=== PATIENT | female | born 1995 | race Caucasian/White ===

== ENCOUNTER 2019-01-22 16:55 | Emergency (ER) | payer OTHER ==
[2019-01-22 17:21] LABS: BILIRUBIN,URINE NEGATIVE (NEGATIVE); GLUCOSE, URINE (UA) NEGATIVE (NEGATIVE); KETONES,URINE (UA) NEGATIVE (NEGATIVE); LEUKOCYTE ESTERASE, URINE NEGATIVE (NEGATIVE); NITRITE,URINE NEGATIVE (NEGATIVE); OCCULT BLOOD,URINE NEGATIVE (NEGATIVE); PH,URINE 6.5 PH (5.0-7.5); PROTEIN,URINE NEGATIVE (NEGATIVE); UROBILINOGEN,URINE 0.2 (NORMAL) E.U./dL (NORMAL)
[2019-01-22 17:26] LABS: CLARITY,URINE CLEAR (CLEAR); HCG UR QUAL NEGATIVE
--- NOTE | 2019-01-22 17:29 | ED Physician Documentation ---
PD HPI ABD PAIN - Stated complaint Stated Complaint: LOW RT ABD PX/NAUSEA - Chief complaint Chief Complaint: Abd Pain - History obtained from History obtained from: Patient - History of Present Illness Timing - onset: Today (Woke at 4am with R abd pain, started more central and moved to the right. Assoc with nausea. No vomiting. BMs are normal.) Review of Systems Constitutional: denies: Fever, Chills Cardiac: reports: Reviewed and negative Respiratory: reports: Reviewed and negative PD PAST MEDICAL HISTORY - Past Medical History Past Medical History: No - Past Surgical History Past Surgical History: Yes HEENT: Tonsil/Adenoidectomy - Present Medications Home Medications: Ambulatory Orders Medication Instructions Recorded Confirmed No Known Home Medications 01/22/19 01/22/19 - Allergies Allergies/Adverse Reactions: Allergies Allergy/AdvReac Type Severity Reaction Status Date / Time No Known Drug Allergies Allergy Verified 01/22/19 17:09 - Social History Does the pt smoke?: No Smoking Status: Never smoker Does the pt drink ETOH?: Yes Does the pt have substance abuse?: No - Immunizations Immunizations are current?: Yes PD ED PE NORMAL - Vitals Vital signs reviewed: Yes - General General: Alert and oriented X 3, No acute distress - HEENT HEENT: PERRL, EOMI - Neck Neck: Supple, no meningeal sign, No bony TTP - Cardiac Cardiac: RRR, No murmur - Respiratory Respiratory: No respiratory distress, Clear bilaterally - Abdomen Abdomen: Normal bowel sounds, Soft, Other (Mild tenderness in the right mid abdomen, no surgical signs.) - Back Back: No CVA TTP, No spinal TTP - Derm Derm: Normal color, Warm and dry - Extremities Extremities: No edema, No calf tenderness / cord - Neuro Neuro: Alert and oriented X 3, Normal speech - Psych Psych: Normal mood, Normal affect Results - Vitals Vitals: Vital Signs - 24 hr 01/22/19 17:06 Temperature 36.2 C L Heart Rate 54 L Respiratory 18 Rate Blood Pressure 131/77 H O2 Saturation 98 Oxygen O2 Source Room air - Labs Labs: Laboratory Tests 01/22/19 01/22/19 01/22/19 17:07 17:24 17:24 WBC 11.4 H RBC 4.97 Hgb 13.8 Hct 42.8 MCV 86.0 MCH 27.7 MCHC 32.2 RDW 14.0 Plt Count 256 MPV 8.7 Neut # (Auto) 9.8 H Lymph # (Auto) 1.2 L [place] # (Auto) 0.3 Eos # (Auto) 0.0 Baso # (Auto) 0.0 Absolute Nucleated RBC 0.00 Nucleated RBC % 0.0 Sodium 137 Potassium 3.9 Chloride 103 Carbon Dioxide 26 Anion Gap 8.0 BUN 10 Creatinine 0.7 Estimated GFR (MDRD) 106 Glucose 113 H Calcium 9.2 Total Bilirubin 0.8 AST 26 ALT 27 Alkaline Phosphatase 71 Total Protein 7.5 Albumin 4.4 Globulin 3.1 Albumin/Globulin Ratio 1.4 Lipase 25 Urine Color YELLOW Urine Clarity CLEAR Urine pH 6.5 Ur Specific [place] 1.020 Urine Protein NEGATIVE Urine Glucose (UA) NEGATIVE Urine Ketones NEGATIVE Urine Occult Blood NEGATIVE Urine Nitrite NEGATIVE Urine Bilirubin NEGATIVE Urine Urobilinogen 0.2 (NORMAL) Ur Leukocyte Esterase NEGATIVE Ur Microscopic Review NOT INDICATED Urine Culture Comments NOT INDICATED Urine HCG, Qual NEGATIVE - Rads (name of study) CT A/P Radiology: EMP read contemporaneously (normal) PD MEDICAL DECISION MAKING - ED course ED course: This is a nonsexually active young woman with right lower quadrant pain, she has a borderline elevated white blood cell count and CT that was negative. Close watchful waiting was advised. Departure - Departure Disposition: 01 Home, Self Care Clinical Impression: Abdominal pain Qualifiers: Abdominal location: right lower quadrant Qualified Code(s): R10.31 - Right lower quadrant pain Condition: Good Record reviewed to determine appropriate education?: Yes Instructions: ED Abdominal Pain Unkn Cause Comments: As discussed if not better by lunchtime tomorrow please return for reevaluation, sooner if worse or if new symptoms develop. Your blood pressure was elevated today on check into the emergency department. This does not mean that you have hypertension, it is a common phenomenon to come to the emergency department and have elevated blood pressure. I recommend that you see your primary care physician within the week to have it rechecked when you are feeling better.
[2019-01-22 17:32] LABS: BASOPHILS % (AUTO) 0.4 %; HGB - HEMOGLOBIN 13.8 g/dL (12.0-16.0); LYMPHOCYTES # (AUTO) 1.2 10^3/uL (1.5-3.5); LYMPHOCYTES % (AUTO) 10.8 %; MEAN CORPUSCULAR HEMOGLOBIN 27.7 pg (27.0-31.0); MEAN CORPUSCULAR HGB CONC 32.2 g/dL (32.0-36.0); MEAN PLATELET VOLUME 8.7 fL (7.9-10.8); MONOCYTES # (AUTO) 0.3 10^3/uL (0.0-1.0); MONOCYTES % (AUTO) 2.8 %; NEUTROPHILS # (AUTO) 9.8 10^3/uL (1.5-6.6); PLT - PLATELET COUNT 256 10^3/uL (130-450); RED BLOOD COUNT 4.97 10^6/uL (4.20-5.40); WHITE BLOOD COUNT 11.4 x10^3/uL (4.8-10.8)
[2019-01-22 17:47] LABS: ALBUMIN 4.4 g/dL (3.2-5.5); ALBUMIN/GLOBULIN RATIO 1.4 (1.0-2.2); BILIRUBIN,TOTAL 0.8 mg/dL (0.2-1.0); CALCIUM 9.2 mg/dL (8.5-10.3); CREATININE 0.7 mg/dL (0.4-1.0); TOTAL PROTEIN 7.5 g/dL (6.7-8.2)
[2019-01-22] MEDS ORDERED: IOPAMIDOL-300 100 ML VIAL ONE (18:01)
[2019-01-22] MEDS ORDERED: IOPAMIDOL-300 100 ML VIAL IVP ONE (18:15)
--- NOTE | 2019-01-22 18:36 | CT Report ---
Reason: IV only, RLQ pain Procedure Date: 01/22/2019 Accession Number: [id number] / [id number] Procedure: CT - Abdomen/Pelvis W CPT Code: FULL RESULT: EXAM: CT ABDOMEN AND PELVIS EXAM DATE: 01/22/2019 06:12 PM. CLINICAL HISTORY: Right lower quadrant pain. COMPARISONS: None. TECHNIQUE: Routine helical CT imaging was performed through the abdomen and pelvis. IV contrast: ISOVUE 300 100mL. Enteric contrast: No. Reconstructions: Coronal and sagittal. In accordance with CT protocol optimization, one or more of the following dose reduction techniques were utilized for this exam: automated exposure control, adjustment of mA and/or KV based on patient size, or use of iterative reconstructive technique. FINDINGS: Lung Bases: Unremarkable. Liver: Normal. No masses. Gallbladder/Bile Ducts: Unremarkable. Spleen: Normal. Pancreas: Normal. Adrenal Glands: Normal. Kidneys: Normal. No masses or hydronephrosis. Peritoneal Cavity/Bowel: Normal. No free fluid, free air or adenopathy. No masses or acute inflammatory process. The appendix appears normal. Pelvic Organs: Normal. The bladder and visualized pelvic organs are within normal limits. Vasculature: No aneurysms or other significant abnormality. Bones: No significant abnormality. Other: None. IMPRESSION: Normal abdomen and pelvis CT. RADIA
[2019-01-22 19:23] VITALS: BP 137/75
== END 2019-01-22 19:22 | disposition home or self-care (01) ==
LOC: ED 16:55
DX: R10.31 Right lower quadrant pain (principal); R11.0 Nausea; D72.829 Elevated white blood cell count, unspecified; R03.0 Elevated blood-pressure reading, without diagnosis of hypertension
CPT/HCPCS: 36415; 74177; 80053; 81003; 81025; 83690; 85025; 99283; Q9967; 81001; 87086

== ENCOUNTER 2019-01-25 19:35 | Emergency (ER) | payer OTHER ==
[2019-01-25] MEDS ORDERED: LIDOCAINE VISCOUS 2% 15 ML UDC MM STA ×2 (22:07→22:25)
[2019-01-25] MEDS ORDERED: SODIUM CHLORIDE 0.9% 1,000 ML IV ONE (22:07)
[2019-01-25] MEDS ORDERED: MAG HYDROX/AL HYDROX/SIMETH 30 ML UDC PO STA ×2 (22:07→22:25)
--- NOTE | 2019-01-25 22:10 | ED Physician Documentation ---
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 She has continued to have pain and today the pain has become unbearable. She did take some ibuprofen earlier and this did not seem to help. She has not been able to hold fluids. Review of Systems Constitutional: denies: Fever, Chills, Myalgias Eyes: denies: Decreased vision Ears: denies: Ear pain Nose: denies: Rhinorrhea / runny nose, Congestion Throat: denies: Sore throat Cardiac: denies: Chest pain / pressure, Palpitations, Pedal edema, Calf pain Respiratory: denies: Dyspnea, Cough GI: reports: Abdominal Pain, Nausea, Vomiting : denies: Dysuria, Frequency Skin: denies: Rash Musculoskeletal: reports: Back pain. denies: Neck pain, Extremity pain Neurologic: denies: Generalized weakness, Focal weakness, Numbness PD PAST MEDICAL HISTORY - Past Medical History Past Medical History: No Cardiovascular: None Respiratory: None Neuro: None Endocrine/Autoimmune: None GI: None LAB AIDE: None : None HEENT: None Psych: None Musculoskeletal: None Derm: None - Past Surgical History Past Surgical History: Yes General: Other HEENT: Tonsil/Adenoidectomy - Present Medications Home Medications: Ambulatory Orders Medication Instructions Recorded Confirmed Sucralfate [Carafate] 1 gm PO ACHS #60 tablet 01/25/19 - Allergies Allergies/Adverse Reactions: Allergies Allergy/AdvReac Type Severity Reaction Status Date / Time No Known Drug Allergies Allergy Verified 01/25/19 19:43 - Social History Does the pt smoke?: No Smoking Status: Never smoker Does the pt drink ETOH?: Yes Does the pt have substance abuse?: No - Immunizations Immunizations are current?: Yes - POLST Patient has POLST: No PD ED PE NORMAL - Vitals Vital signs reviewed: Yes (hypertensive ) - General General: Alert and oriented X 3, No acute distress, Well developed/nourished - HEENT HEENT: Atraumatic, PERRL, EOMI, Other (dry mucous membranes ) - Neck Neck: Supple, no meningeal sign, No bony TTP - Cardiac Cardiac: RRR, No murmur - Respiratory Respiratory: No respiratory distress, Clear bilaterally, Other (There is some tenderness to the rhomboid muscles bilaterally. Breath sounds are diminished. ) - Abdomen Abdomen: Soft, Other (epigasatric tenderness without guarding. ) - Back Back: No CVA TTP, No spinal TTP - Derm Derm: Normal color, Warm and dry, No rash - Extremities Extremities: No deformity, No edema - Neuro Neuro: Alert and oriented X 3, boat patcher plastic 2-12 intact, No motor deficit, No sensory deficit, Normal speech Eye Opening: Spontaneous Motor: Obeys Commands Verbal: Oriented GCS Score: 15 - Psych Psych: Normal mood, Normal affect Results - Vitals Vitals: Vital Signs - 24 hr 01/25/19 01/25/19 01/25/19 19:40 21:42 21:59 Temperature 36.7 C Heart Rate 88 60 Respiratory 14 16 16 Rate Blood Pressure 146/95 H 118/88 H O2 Saturation 100 99 01/25/19 01/25/19 01/25/19 22:30 23:09 23:27 Temperature Heart Rate 59 L 59 L 54 L Respiratory 16 14 15 Rate Blood Pressure 127/91 H 107/75 107/75 O2 Saturation 100 100 97 01/25/19 23:45 Temperature Heart Rate 55 L Respiratory 16 Rate Blood Pressure O2 Saturation 99 Oxygen O2 Source Room air - EKG (time done) 194 Rate: Rate (enter#) (76) Rhythm: NSR Ischemia: Normal ST segments Compare to prior EKG: Old EKG unavailable Computer interpretation: Agree with computer - Labs Labs: Laboratory Tests 01/25/19 01/25/19 22:30 22:30 WBC 9.1 RBC 5.04 Hgb 14.6 Hct 42.7 MCV 84.8 MCH 29.0 MCHC 34.2 RDW 13.8 Plt Count 238 MPV 8.7 Neut # (Auto) 5.8 Lymph # (Auto) 2.5 [place] # (Auto) 0.7 Eos # (Auto) 0.0 Baso # (Auto) 0.1 Absolute Nucleated RBC 0.01 Nucleated RBC % 0.1 Sodium 134 L Potassium 3.9 Chloride 99 L Carbon Dioxide 25 Anion Gap 10.0 BUN 10 Creatinine 0.8 Estimated GFR (MDRD) 90 Glucose 101 H Calcium 8.8 Total Bilirubin 0.9 AST 21 ALT 18 Alkaline Phosphatase 79 Total Protein 7.5 Albumin 4.4 Globulin 3.1 Albumin/Globulin Ratio 1.4 Lipase 28 Procedures - IVC sono (time) 2206 Bedside IVC sono: IVC measures (cm) (0.94), Dehydration (est 1-2 liter deficit.) PD MEDICAL DECISION MAKING - ED course Complexity details: reviewed results, re-evaluated patient, considered differential, d/w patient ED course: 24-year-old female with epigastric abdominal pain after taking ibuprofen is administered a GI cocktail with improvement in her pain she has further improvement with the second cocktail including the Carafate. She is diagnosed with gastritis or duodenitis. Departure - Departure Disposition: 01 Home, Self Care Clinical Impression: Gastritis Qualifiers: Gastritis type: unspecified gastritis Chronicity: acute Gastritis bleeding: without bleeding Qualified Code(s): K29.00 - Acute gastritis without bleeding Condition: Stable Instructions: ED PUD Vs Gastritis Follow-Up: [facility] [Provider Group] Prescriptions: Sucralfate [Carafate] 1 gm PO ACHS #60 tablet Comments: Today it appears your abdominal pain is related to gastritis or an inflammation of the lining of the stomach. The lining of the stomach is especially sensitive to ibuprofen aspirin and Aleve. Avoid these medications as well as alcohol. Take some medication to reduce the acid in your stomach such as omeprazole or Pepcid AC. These are available [id number]. Take them on a regular basis for at least 2 weeks. In addition I have prescribed some Carafate which will coat your esophagus and stomach and aid in healing. The expectation is that your pain is improved dramatically over the next 24 hours and with treatment resolves. Discharge Date/Time: 01/25/19 23:55
[2019-01-25] MEDS ORDERED: SUCRALFATE 1 GM/10 ML UDC PO STA (22:25)
[2019-01-25] MEDS ORDERED: PANTOPRAZOLE 40 MG VIAL IVP STA (22:25)
[2019-01-25 22:41] LABS: BASOPHILS # (AUTO) 0.1 10^3/uL (0.0-0.1); BASOPHILS % (AUTO) 0.8 %; EOSINOPHILS % (AUTO) 0.5 %; HGB - HEMOGLOBIN 14.6 g/dL (12.0-16.0); LYMPHOCYTES # (AUTO) 2.5 10^3/uL (1.5-3.5); LYMPHOCYTES % (AUTO) 27.7 %; MEAN CORPUSCULAR HGB CONC 34.2 g/dL (32.0-36.0); MEAN CORPUSCULAR VOLUME 84.8 fL (81.0-99.0); MEAN PLATELET VOLUME 8.7 fL (7.9-10.8); MONOCYTES # (AUTO) 0.7 10^3/uL (0.0-1.0); MONOCYTES % (AUTO) 7.2 %; NEUTROPHILS # (AUTO) 5.8 10^3/uL (1.5-6.6); NEUTROPHILS % (AUTO) 63.8 %; PLT - PLATELET COUNT 238 10^3/uL (130-450); RED BLOOD COUNT 5.04 10^6/uL (4.20-5.40); RED CELL DISTRIBUTION WIDTH 13.8 % (12.0-15.0); WHITE BLOOD COUNT 9.1 x10^3/uL (4.8-10.8)
[2019-01-25 22:52] LABS: ALBUMIN 4.4 g/dL (3.2-5.5); ALBUMIN/GLOBULIN RATIO 1.4 (1.0-2.2); BILIRUBIN,TOTAL 0.9 mg/dL (0.2-1.0); CALCIUM 8.8 mg/dL (8.5-10.3); CREATININE 0.8 mg/dL (0.4-1.0); TOTAL PROTEIN 7.5 g/dL (6.7-8.2)
[2019-01-25 23:10] VITALS: BP 107/75
== END 2019-01-25 23:55 | disposition home or self-care (01) ==
LOC: ED 19:35
DX: K29.00 Acute gastritis without bleeding (principal); E86.0 Dehydration
CPT/HCPCS: 36415; 80053; 83690; 85025; 93005; 96361; 96374; 99283; 99284; A9270

== ENCOUNTER 2019-04-03 23:52 | Emergency (ER) | payer OTHER ==
[2019-04-03 23:59] VITALS: BP 123/70
--- NOTE | 2019-04-04 00:08 | ED Physician Documentation ---
PD HPI LOWER EXT INJURY - Stated complaint Stated Complaint: L ANKLE PX - Chief complaint Chief Complaint: Trauma Ext - History obtained from History obtained from: Patient - History of Present Illness PD HPI LOW EXT INJURY LOCATION: Left, Ankle Type of injury: Twist Where injury occurred: Street (yesterday while runnign) Timing - onset: How many days ago (1) Timing - duration: Days (1) Timing - details: Gradual onset Pain level max: 8 Pain level now: 6 Improved by: Rest, Ice, Immobilization Worsened by: Moving, Palpating Associated symptoms: Swelling, Discolored (bruising). 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 : None HEENT: None Psych: None Musculoskeletal: None Derm: None - Past Surgical History Past Surgical History: Yes General: Other HEENT: Tonsil/Adenoidectomy - Allergies Allergies/Adverse Reactions: Allergies Allergy/AdvReac Type Severity Reaction Status Date / Time No Known Drug Allergies Allergy Verified 04/04/19 00:01 - Social History Does the pt smoke?: No Smoking Status: Never smoker Does the pt drink ETOH?: Yes Does the pt have substance abuse?: No - Immunizations Immunizations are current?: Yes - POLST Patient has POLST: No PD ED PE NORMAL - Vitals Vital signs reviewed: Yes - General General: Alert and oriented X 3, No acute distress - HEENT HEENT: Moist mucous membranes - Neck Neck: Supple, no meningeal sign - Derm Derm: Warm and dry - Extremities Extremities: Other (Tender to palpation over the lateral malleolus of the left ankle. Mild swelling. Small ecchymosis. Otherwise normal examination of the foot and ankle. Neurovascularly intact) - Neuro Neuro: Alert and oriented X 3 Results - Vitals Vitals: Vital Signs - 24 hr 04/03/19 23:55 Temperature 36.6 C Heart Rate 73 Respiratory 18 Rate Blood Pressure 123/70 O2 Saturation 100 Oxygen O2 Source Room air - Rads (name of study) Left ankle x-ray Radiology: Prelim report reviewed, EMP read contemporaneously, See rad report (Normal ankle x-ray) PD MEDICAL DECISION MAKING - ED course Complexity details: reviewed results, re-evaluated patient, considered differential, d/w patient ED course: 24-year-old female with a left ankle sprain. No acute findings on x-ray. Placed in a Aircast for comfort. Declines crutches. Declines pain medication here or for home. Patient counseled regarding signs and symptoms for which I believe and urgent re-evaluation would be necessary. Patient with good understanding of and agreement to plan and is comfortable going home at this time This document was made in part using voice recognition software. While efforts are made to proofread this document, sound alike and grammatical errors may occur. Departure - Departure Disposition: Home, Self Care Clinical Impression: Left ankle sprain Qualifiers: Encounter type: initial encounter Involved ligament of ankle: unspecified ligament Qualified Code(s): S93.402A - Sprain of unspecified ligament of left ankle, initial encounter Condition: Good Instructions: ED Sprain Ankle Follow-Up: your,doctor in 1 week [Other] Comments: Wear the splint as needed for comfort. Follow-up with your doctor in 1 week for repeat evaluation. Forms: Activity restrictions
--- NOTE | 2019-04-04 00:53 | XRAY Report ---
Reason: L ankle pain s/p inversion Procedure Date: 04/04/2019 Accession Number: [id number] / [id number] Procedure: XR - Ankle 3 View LT CPT Code: FULL RESULT: EXAM: LEFT ANKLE RADIOGRAPHY EXAM DATE: 04/04/2019 12:30 AM. CLINICAL HISTORY: L ankle pain s/p inversion. COMPARISON: None. TECHNIQUE: 3 views. FINDINGS: Bones: Normal. No fractures or bone lesions. Joints: Normal. No effusion. No subluxations. The ankle mortise is normally aligned. Soft Tissues: Normal. No soft tissue swelling. IMPRESSION: Normal ankle radiography. RAD[facility]
== END 2019-04-04 01:05 | disposition home or self-care (01) ==
LOC: ED 23:52
DX: S93.402A Sprain of unspecified ligament of left ankle, initial encounter (principal); X50.1XXA Overexertion from prolonged static or awkward postures, initial encounter; Y93.02 Activity, running; Y92.410 Unspecified street and highway as the place of occurrence of the external cause
CPT/HCPCS: 99283

== ENCOUNTER 2019-07-04 09:19 | Emergency (ER) | payer OTHER ==
[2019-07-04 09:25] VITALS: BP 139/87
--- NOTE | 2019-07-04 09:40 | ED Physician Documentation ---
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 She complains of pain in her right thumb, having smashed in a car door 4 days ago. Additionally she complains of low back pain that has been ongoing for the past week, starting after packing heavy gear at work. It is worse with activity. She denies fever, urinary incontinence, numbness or weakness. She denies history of similar symptoms in the past. She is right- hand dominant. 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 : None HEENT: None Psych: None Musculoskeletal: None Derm: None - Past Surgical History Past Surgical History: Yes General: Other HEENT: Tonsil/Adenoidectomy - Allergies Allergies/Adverse Reactions: Allergies Allergy/AdvReac Type Severity Reaction Status Date / Time No Known Drug Allergies Allergy Verified 07/04/19 09:28 - Social History Does the pt smoke?: No Smoking Status: Never smoker Does the pt drink ETOH?: Yes Does the pt have substance abuse?: No - Immunizations Immunizations are current?: Yes - POLST Patient has POLST: No PD ED PE NORMAL - Vitals Vital signs reviewed: Yes (Borderline hypertension.) - General General: Alert and oriented X 3, Well developed/nourished - HEENT HEENT: Atraumatic - Cardiac Cardiac: RRR - Respiratory Respiratory: No respiratory distress, Clear bilaterally - Abdomen Abdomen: Soft, Non tender - Back Back: No CVA TTP, No spinal TTP - Derm Derm: No rash - Extremities Extremities: Other (There is faint ecchymosis at the base of the right thumb at the radial aspect of the MCP joint. There is no break in the integument. There is associated tenderness to palpation. Distal neurovascular is intact.) - Neuro Neuro: Alert and oriented X 3, No motor deficit, No sensory deficit Results - Vitals Vitals: Vital Signs - 24 hr 07/04/19 09:21 Temperature 36.3 C L Heart Rate 90 Respiratory 19 Rate Blood Pressure 139/87 H O2 Saturation 98 Oxygen O2 Source Room air - Rads (name of study) Right thumb Radiology: Prelim report reviewed, EMP read contemporaneously, See rad report (Normal digit radiography.) PD MEDICAL DECISION MAKING - ED course Complexity details: reviewed old records, reviewed results, re-evaluated patient, considered differential, d/w patient ED course: The patient's presentation is most consistent with contusion to the right thumb. There is no evidence of fracture or dislocation on radiographic imaging. Her lower back pain is most consistent with muscle strain. I doubt epidural abscess, spinal stenosis, or cauda equina syndrome. I discussed with her symptomatic treatment, outpatient follow-up, as well as potentially worrisome signs or symptoms that should prompt reevaluation in the emergency department. Departure - Departure Disposition: 01 Home, Self Care Clinical Impression: Contusion of right thumb Qualifiers: Encounter type: initial encounter Damage to nail status: without damage Qualifi ed Code(s): S60.011A - Contusion of right thumb without damage to nail, initial encounter Lumbar strain Qualifiers: Encounter type: initial encounter Qualified Code(s): S39.012A - Strain of muscle, fascia and tendon of lower back, initial encounter Condition: Stable Instructions: ED Contusion Hand, ED Sprain Strain Lumbar Follow-Up: Don Kaye ARNP [Primary Care Provider] - Comments: You can continue using ibuprofen, up to 800 mg 3 times daily for anti- inflammatory effect. Let pain be your guide to activity level. Follow-up with your primary physician within 2 weeks. Call to schedule an appointment. Return to the emergency department if you develop increasing pain, or otherwise worsening symptoms.
--- NOTE | 2019-07-04 10:11 | XRAY Report ---
Reason: Right thumb injury Procedure Date: 07/04/2019 Accession Number: [id number] / [id number] Procedure: XR - Finger(s) RT CPT Code: FULL RESULT: EXAM: RIGHT FIRST DIGIT RADIOGRAPHY EXAM DATE: 07/04/2019 09:51 AM. CLINICAL HISTORY: Right thumb injury. COMPARISON: None. TECHNIQUE: 3 views. FINDINGS: Bones: Normal. No fracture or bone lesion. Joints: Normal. No subluxations. Soft Tissues: Normal. No soft tissue swelling. IMPRESSION: Normal digit radiography. RADIA
[2019-07-04] MEDS ORDERED: fentaNYL 100 MCG/2 ML VIAL IVP STA (10:27)
[2019-07-04] MEDS ORDERED: FAMOTIDINE 20 MG/2 ML VIAL IVP STA (10:27)
[2019-07-04] MEDS ORDERED: SODIUM CHLORIDE 0.9% 1,000 ML IV ONE (10:27)
[2019-07-04] MEDS ORDERED: ONDANSETRON 4 MG/2 ML VIAL IVP STA (10:28)
== END 2019-07-04 10:29 | disposition home or self-care (01) ==
LOC: ED 09:19
DX: S60.011A Contusion of right thumb without damage to nail, initial encounter (principal); W23.0XXA Caught, crushed, jammed, or pinched between moving objects, initial encounter; S39.012A Strain of muscle, fascia and tendon of lower back, initial encounter; X50.0XXA Overexertion from strenuous movement or load, initial encounter; Y93.89 Activity, other specified; Y99.1 Military activity
CPT/HCPCS: 73140; 80053; 83690; 85025; 99283; 99284

== ENCOUNTER 2019-07-22 16:41 | Emergency (ER) | payer OTHER ==
--- NOTE | 2019-07-22 18:38 | XRAY Report ---
Reason: cough Procedure Date: 07/22/2019 Accession Number: [id number] / [id number] Procedure: XR - Chest 2 View X-Ray CPT Code: 15969 FULL RESULT: EXAM: CHEST RADIOGRAPHY EXAM DATE: 07/22/2019 05:53 PM. CLINICAL HISTORY: Cough. COMPARISON: None. TECHNIQUE: 2 views. FINDINGS: Lungs/Pleura: No dense consolidation. No large effusion or pneumothorax. No pulmonary edema. Mediastinum: Heart and mediastinal contours are unremarkable. Other: None. IMPRESSION: No acute radiographic pulmonary abnormalities. RAD[facility]
[2019-07-22] MEDS ORDERED: DEXAMETHASONE 10 MG/ML VIAL PO STA (18:48)
[2019-07-22] MEDS ORDERED: IPRATROPIUM/ALBUTEROL 3 ML NEB INH STA (18:48)
[2019-07-22] MEDS ORDERED: CHERRY SYRUP 10 ML UDC PO ONE (18:48)
[2019-07-22] MEDS ORDERED: BENZONATATE 100 MG CAPSULE PO STA (18:48)
--- NOTE | 2019-07-22 18:55 | ED Physician Documentation ---
History of Present Illness - Stated complaint Stated Complaint: COUGH/DIARRHEA/SOA - Chief complaint Chief Complaint: General - History obtained from History obtained from: Patient - History of Present Illness Timing: How many days ago (4-5) Pain level max: 3 Pain level now: 3 Improved by: rest Worsened by: deep breath - Additonal information Additional information: 24-year-old female presents to the emergency department with cough congestion for the past 4 to 5 days, increasing trouble breathing. Used inhalers when she was younger. Occasional subjective fevers. Had diarrhea x3 today. No vomiting. Denies any possibility of . 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 : None HEENT: None Psych: None Musculoskeletal: None Derm: None - Past Surgical History Past Surgical History: Yes General: Other HEENT: Tonsil/Adenoidectomy - Present Medications Home Medications: Ambulatory Orders Medication Instructions Recorded Confirmed Albuterol Sulfate [Proair Hfa 1 - 2 puffs INH Q4H PRN #1 inhaler 07/22/19 Inhaler] Benzonatate [Tessalon Perle] 100 - 200 mg PO TID PRN #30 capsule 07/22/19 - Allergies Allergies/Adverse Reactions: Allergies Allergy/AdvReac Type Severity Reaction Status Date / Time No Known Drug Allergies Allergy Verified 07/22/19 17:12 - Social History Does the pt smoke?: No Smoking Status: Never smoker Does the pt drink ETOH?: Yes Does the pt have substance abuse?: No - Immunizations Immunizations are current?: Yes - POLST Patient has POLST: No PD ED PE NORMAL - Vitals Vital signs reviewed: Yes - General General: Alert and oriented X 3, No acute distress, Well developed/nourished - HEENT HEENT: Ears normal, Moist mucous membranes, Pharynx benign - Neck Neck: Supple, no meningeal sign, No adenopathy - Cardiac Cardiac: RRR, Strong equal pulses - Respiratory Respiratory: No respiratory distress, Other (Mild diminished breath sounds bilaterally) - Abdomen Abdomen: Soft, Non tender, Non distended - Back Back: No CVA TTP, No spinal TTP - Derm Derm: Warm and dry, No rash - Extremities Extremities: No edema - Neuro Neuro: Alert and oriented X 3 - Psych Psych: Normal mood, Normal affect Results - Vitals Vitals: Oxygen O2 Source Room air - Rads (name of study) cxr Radiology: Prelim report reviewed, EMP read contemporaneously, See rad report (No acute disease) PD MEDICAL DECISION MAKING - ED course Complexity details: reviewed results, re-evaluated patient, considered differential, d/w patient ED course: 24-year-old female with what appears to be a viral syndrome. She is well- appearing, nontoxic. Afebrile. Feels better after albuterol treatment. Will prescribe an inhaler for home. We will have her follow-up with her doctor for further care. Patient counseled regarding signs and symptoms for which I believe and urgent re-evaluation would be necessary. Patient with good understanding of and agreement to plan and is comfortable going home at this time This document was made in part using voice recognition software. While efforts are made to proofread this document, sound alike and grammatical errors may occur. Departure - Departure Disposition: 01 Home, Self Care Clinical Impression: Viral syndrome Condition: Good Instructions: ED Viral Syndrome Follow-Up: Don Kaye ARNP [Primary Care Provider] - Within 1 week (if not better ) Prescriptions: Albuterol Sulfate [Proair Hfa Inhaler] 1 - 2 puffs INH Q4H PRN #1 inhaler PRN Reason: Shortness Of Air/Wheezing Benzonatate [Tessalon Perle] 100 - 200 mg PO TID PRN #30 capsule PRN Reason: Cough Comments: Return if you worsen. Follow-up with your doctor for further care. Your x-ray does not show any pneumonia today. Drink plenty of fluids and rest. Discharge Date/Time: 07/22/19 19:56
[2019-07-22 19:42] VITALS: BP 94/54
== END 2019-07-22 19:56 | disposition home or self-care (01) ==
LOC: ED 16:41
DX: B34.9 Viral infection, unspecified (principal)
CPT/HCPCS: 71046; 94640; 99283; A9270

== ENCOUNTER 2019-08-20 14:50 | Emergency (ER) | payer OTHER ==
[2019-08-20] MEDS ORDERED: BENZONATATE 100 MG CAPSULE PO STA (15:29)
[2019-08-20] MEDS ORDERED: guaiFENesin/CODEINE 5 ML UDC PO STA (15:29)
[2019-08-20] MEDS ORDERED: ALBUTEROL NEB 2.5 MG/3 ML INH STA (15:29)
[2019-08-20] MEDS ORDERED: DEXAMETHASONE 10 MG/ML VIAL PO STA (15:29)
[2019-08-20] MEDS ORDERED: CHERRY SYRUP 10 ML UDC PO ONE (15:29)
--- NOTE | 2019-08-20 15:54 | ED Physician Documentation ---
PD HPI URI - Stated complaint Stated Complaint: SOA, CP - Chief complaint Chief Complaint: Resp - History obtained from History obtained from: Patient - History of Present Illness Timing - onset: How many months ago (1) Timing duration: Months (1) Timing details: Still present, Waxing and waning (has had coughing and dyspnea for a month. Seen in ER with Rx for Tessalon and Albuterol MDI, with some improvement, but not all better, and has had increased coughing and dyspnea again this past week. No fevers, no sputum. Has repetitive dry cough.) Associated symptoms: Dry cough, Dyspnea. No: Fever, Chills, Sore throat, Swollen nodes, NVD Contributing factors: No: Sick contact, COPD / asthma Worsened by: Activity Recently seen: Emergency Dept (a month ago) Review of Systems Constitutional: denies: Fever, Chills, Myalgias Nose: denies: Rhinorrhea / runny nose, Congestion, Sinus pressure / pain Throat: denies: Sore throat Cardiac: denies: Chest pain / pressure, Palpitations Respiratory: reports: Dyspnea, Cough. 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 : None HEENT: None Psych: None Musculoskeletal: None Derm: None - Past Surgical History Past Surgical History: Yes General: Other HEENT: Tonsil/Adenoidectomy - Present Medications Home Medications: Ambulatory Orders Medication Instructions Recorded Confirmed Albuterol Sulfate [Proair Hfa 1 - 2 puffs INH Q4H PRN #1 inhaler 07/22/19 Inhaler] Benzonatate [Tessalon Perle] 100 - 200 mg PO TID PRN #30 capsule 07/22/19 Albuterol Sulf [Ventolin Hfa 1 - 2 puffs INH Q4HR PRN #1 inhaler 08/20/19 Inhaler] Benzonatate [Tessalon Perle] 100 mg PO TID PRN #25 capsule 08/20/19 Doxycycline Hyclate 100 mg PO BID #14 capsule 08/20/19 dexAMETHasone [Decadron] 4 mg PO DAILY #10 tablet 08/20/19 guaiFENesin/CODEINE [Robitussin AC] 10 ml PO Q6H PRN #240 ml 08/20/19 - Allergies Allergies/Adverse Reactions: Allergies Allergy/AdvReac Type Severity Reaction Status Date / Time No Known Drug Allergies Allergy Verified 07/22/19 17:12 - Social History Does the pt smoke?: No Smoking Status: Never smoker Does the pt drink ETOH?: Yes Does the pt have substance abuse?: No - Immunizations Immunizations are current?: Yes - POLST Patient has POLST: No PD ED PE NORMAL - Vitals Vital signs reviewed: Yes - General General: Alert and oriented X 3, No acute distress, Well developed/nourished - HEENT HEENT: Ears normal, Pharynx benign - Neck Neck: Supple, no meningeal sign, No adenopathy - Cardiac Cardiac: RRR, No murmur - Respiratory Respiratory: No respiratory distress, Other (repetitive dry cough, without wheezing, but prolonged expiratory phase. ) - Abdomen Abdomen: Soft, Non tender - Derm Derm: Normal color, Warm and dry - Extremities Extremities: No tenderness to palpate, No edema, No calf tenderness / cord - Neuro Neuro: Alert and oriented X 3, No motor deficit, Normal speech Results - Vitals Vitals: Vital Signs - 24 hr 08/20/19 08/20/19 08/20/19 15:06 15:55 16:20 Temperature 36.6 C 36.7 C Heart Rate 63 84 80 Respiratory 20 16 16 Rate Blood Pressure 128/71 127/66 O2 Saturation 98 98 Oxygen O2 Source Room air - Rads (name of study) chest xray Radiology: Prelim report reviewed (no infiltrates), See rad report PD MEDICAL DECISION MAKING - ED course Complexity details: reviewed results, considered differential (consider atypical bronchitis. ), d/w patient Departure - Departure Disposition: 01 Home, Self Care Clinical Impression: Persistent cough for 3 weeks or longer, Bronchitis Condition: Stable Record reviewed to determine appropriate education?: Yes Instructions: ED Bronchitis Asthmatic Follow-Up: Don Kaye ARNP [Primary Care Provider] - Prescriptions: Albuterol Sulf [Ventolin Hfa Inhaler] 1 - 2 puffs INH Q4HR PRN #1 inhaler PRN Reason: Shortness Of Air/Wheezing Benzonatate [Tessalon Perle] 100 mg PO TID PRN #25 capsule PRN Reason: Cough dexAMETHasone [Decadron] 4 mg PO DAILY #10 tablet Doxycycline Hyclate 100 mg PO BID #14 capsule guaiFENesin/CODEINE [Robitussin AC] 10 ml PO Q6H PRN #240 ml PRN Reason: Cough Comments: Your chest x-ray is still clear. The lungs do not show any signs of pneumonia or fluid. Presume this is a persisting bronchial inflammation. This can be just inflammatory or environmental or could be an atypical infection. Continue the inhaler 2 puffs 4 times a day to see if it helps. Tessalon if needed for cough suppression. These have been the previous prescriptions as well. To it add Robitussin with codeine if needed for cough suppression 2. I think a big difference will be adding a steroid for reduction of inflammation of the bronchials. Take Decadron daily as directed. There may be a mild infection persisting to cause this so we can try doxycycline antibiotic as well for a week. See if the combination of it all helps improve your symptoms. Follow-up with your primary care if not better over the next week. Forms: Activity restrictions Discharge Date/Time: 08/20/19 16:21
--- NOTE | 2019-08-20 16:14 | XRAY Report ---
Reason: dyspnea/ cough for a month Procedure Date: 08/20/2019 Accession Number: [id number] / [id number] Procedure: XR - Chest 2 View X-Ray CPT Code: 91586 FULL RESULT: EXAM: CHEST RADIOGRAPHY EXAM DATE: 08/20/2019 03:49 PM. CLINICAL HISTORY: Dyspnea/ cough for a month. COMPARISON: CHEST 2 VIEW 07/22/2019 5:52 PM. TECHNIQUE: 2 views. FINDINGS: Heart size is normal. The lungs are hypoexpanded. Mild patchy bibasilar opacities likely representing atelectasis. Otherwise no focal consolidation. No pleural effusion or pneumothorax. IMPRESSION: Low lung volumes and mild patchy bibasilar atelectasis. Otherwise no acute cardiopulmonary findings. RADIA
[2019-08-20 16:21] VITALS: BP 127/66
== END 2019-08-20 16:21 | disposition home or self-care (01) ==
LOC: ED 14:50
DX: J40 Bronchitis, not specified as acute or chronic (principal)
CPT/HCPCS: 71046; 94640; 99284; A9270

== ENCOUNTER 2019-11-03 11:21 | Emergency (ER) | payer OTHER ==
[2019-11-03 11:28] VITALS: BP 123/86
[2019-11-03 11:40] LABS: BILIRUBIN,URINE NEGATIVE (NEGATIVE); CLARITY,URINE CLEAR (CLEAR); GLUCOSE, URINE (UA) NEGATIVE (NEGATIVE); KETONES,URINE (UA) NEGATIVE (NEGATIVE); LEUKOCYTE ESTERASE, URINE TRACE (NEGATIVE); NITRITE,URINE NEGATIVE (NEGATIVE); OCCULT BLOOD,URINE NEGATIVE (NEGATIVE); PROTEIN,URINE NEGATIVE (NEGATIVE); UROBILINOGEN,URINE 0.2 (NORMAL) E.U./dL (NORMAL)
[2019-11-03 11:41] LABS: HCG UR QUAL NEGATIVE
[2019-11-03 11:47] LABS: BACTERIA,URINE Rare /HPF (None Seen); RBC,URINE None Seen /HPF (0-5); SQUAMOUS EPITHELIAL CELL,UR RARE Squamous (<= Few)
--- NOTE | 2019-11-03 12:25 | ED Physician Documentation ---
PD HPI NVD - Stated complaint Stated Complaint: NAUSEA/BACK PX - Chief complaint Chief Complaint: Abd Pain - History obtained from History obtained from: Patient - History of Present Illness Timing - onset: Other (She is about a week late on her menses, has had some nausea with one episode of vomiting, some low back pain and aches and pains generally. No cramping or bleeding. No urinary complaints. She had a test at home and actually took a couple, one was negative and one was maybe slightly positive.) Review of Systems Constitutional: reports: Myalgias. 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 : None HEENT: None Psych: None Musculoskeletal: None Derm: None - Past Surgical History Past Surgical History: Yes General: Other HEENT: Tonsil/Adenoidectomy - Present Medications Home Medications: Ambulatory Orders Medication Instructions Recorded Confirmed Albuterol Sulfate [Proair Hfa 1 - 2 puffs INH Q4H PRN #1 inhaler 07/22/19 Inhaler] Benzonatate [Tessalon Perle] 100 - 200 mg PO TID PRN #30 capsule 07/22/19 Albuterol Sulf [Ventolin Hfa 1 - 2 puffs INH Q4HR PRN #1 inhaler 08/20/19 Inhaler] Benzonatate [Tessalon Perle] 100 mg PO TID PRN #25 capsule 08/20/19 Doxycycline Hyclate 100 mg PO BID #14 capsule 08/20/19 dexAMETHasone [Decadron] 4 mg PO DAILY #10 tablet 08/20/19 guaiFENesin/CODEINE [Robitussin AC] 10 ml PO Q6H PRN #240 ml 08/20/19 - Allergies Allergies/Adverse Reactions: Allergies Allergy/AdvReac Type Severity Reaction Status Date / Time No Known Drug Allergies Allergy Verified 11/03/19 11:24 - Social History Does the pt smoke?: No Smoking Status: Never smoker Does the pt drink ETOH?: Yes Does the pt have substance abuse?: No - Immunizations Immunizations are current?: Yes - POLST Patient has POLST: No PD ED PE NORMAL - Vitals Vital signs reviewed: Yes - General General: Alert and oriented X 3, No acute distress - Cardiac Cardiac: RRR, No murmur - Respiratory Respiratory: No respiratory distress, Clear bilaterally - Abdomen Abdomen: Normal bowel sounds, Soft, Non tender - Back Back: No CVA TTP, No spinal TTP - Derm Derm: Normal color, Warm and dry - Extremities Extremities: No edema, No calf tenderness / cord - Neuro Neuro: Alert and oriented X 3, Normal speech - Psych Psych: Normal mood, Normal affect Results - Vitals Vitals: Vital Signs - 24 hr 11/03/19 11:24 Temperature 36.6 C Heart Rate 90 Respiratory 14 Rate Blood Pressure 123/86 H O2 Saturation 100 Oxygen O2 Source Room air - Labs Labs: Laboratory Tests 11/03/19 11:33 Urine Color YELLOW Urine Clarity CLEAR Urine pH 7.0 Ur Specific [place] <=1.005 Urine Protein NEGATIVE Urine Glucose (UA) NEGATIVE Urine Ketones NEGATIVE Urine Occult Blood NEGATIVE Urine Nitrite NEGATIVE Urine Bilirubin NEGATIVE Urine Urobilinogen 0.2 (NORMAL) Ur Leukocyte Esterase TRACE H Urine RBC None Seen Urine WBC 0-3 Ur Squamous Epith Cells RARE Squamous Urine Bacteria Rare Ur Microscopic Review INDICATED Urine Culture Comments INDICATED Urine HCG, Qual NEGATIVE PD MEDICAL DECISION MAKING - ED course ED course: Some of her symptoms could be due to early , advised she wait a few days to a week and try another home test. She has small leukocyte esterase in her urine, but no urinary complaints so suspect this is false positive. She declined medication for nausea or the aches. Departure - Departure Disposition: 01 Home, Self Care Clinical Impression: Late menses Vomiting Qualifiers: Vomiting type: unspecified Vomiting Intractability: non-intractable Nausea presence: with nausea Qualified Code(s): R11.2 - Nausea with vomiting, unspecified Condition: Good Record reviewed to determine appropriate education?: Yes Instructions: ED Nausea Vomiting Comments: Take another test in about a week. Return for new or worsening symptoms.
== END 2019-11-03 12:29 | disposition home or self-care (01) ==
LOC: ED 11:21
DX: N91.2 Amenorrhea, unspecified (principal); R11.2 Nausea with vomiting, unspecified; Z32.02 Encounter for pregnancy test, result negative
CPT/HCPCS: 81001; 81003; 81025; 87086; 99282; 99283

== ENCOUNTER 2019-11-28 04:01 | Emergency (ER) | payer OTHER ==
--- NOTE | 2019-11-28 04:09 | ED Physician Documentation ---
PD HPI FEVER - Stated complaint Stated Complaint: FEVER/NAUSEA/7WKS PREG - History obtained from History obtained from: Patient - History of Present Illness Timing - onset: How many days ago (3) Timing duration: Days Timing details: Gradual onset Pain level now: 4 Associated symptoms: Chills, Sweats, Nasal congestion, Dry cough. No: Ear pain, Sinus pain, Dyspnea, Abdominal pain Recently seen: Not recently seen - Additional information Additional information: patient is 7.5 weeks (primagravida). presents c/o fever Tmax 103, chills, sweats, nausea but no vomiting. Symptoms x 2-3 days Review of Systems Constitutional: reports: Fever, Chills, Myalgias, Sweats Respiratory: reports: Cough. denies: Dyspnea GI: reports: Nausea. 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 : None HEENT: None Psych: None Musculoskeletal: None Derm: None - Past Surgical History Past Surgical History: Yes General: Other HEENT: Tonsil/Adenoidectomy - Present Medications Home Medications: Ambulatory Orders Medication Instructions Recorded Confirmed Oseltamivir [Tamiflu] 75 mg PO BID #9 capsule 11/28/19 Pnv No.95/Ferrous Fum/Folic AC 1 tab PO DAILY 11/28/19 11/28/19 [ Vitamins Tablet] - Allergies Allergies/Adverse Reactions: Allergies Allergy/AdvReac Type Severity Reaction Status Date / Time No Known Drug Allergies Allergy Verified 11/28/19 04:10 - Social History Does the pt smoke?: No Smoking Status: Never smoker Does the pt drink ETOH?: Yes Does the pt have substance abuse?: No - Immunizations Immunizations are current?: Yes - POLST Patient has POLST: No PD ED PE NORMAL - Vitals Vital signs reviewed: Yes - General General: Alert and oriented X 3, No acute distress, Well developed/nourished - HEENT HEENT: Moist mucous membranes, Pharynx benign - Neck Neck: Supple, no meningeal sign - Cardiac Cardiac: RRR, No murmur - Respiratory Respiratory: No respiratory distress, Clear bilaterally - Back Back: No CVA TTP - Derm Derm: Normal color, Warm and dry Results - Vitals Vitals: Vital Signs - 24 hr 11/28/19 04:08 Temperature 36.3 C L Heart Rate 100 Respiratory 16 Rate Blood Pressure 116/80 O2 Saturation 98 Oxygen O2 Source Room air - Labs Labs: Laboratory Tests 11/28/19 04:26 Influenza A (Rapid) Negative Influenza B (Rapid) Negative PD MEDICAL DECISION MAKING - ED course Complexity details: reviewed results, considered differential, d/w patient ED course: patient is well appearing despite high fevers. She is 7.5 weeks . H+P s/o influenza. Will test for influenza, but I also recommend treatment even if result is negative because of the strong suspicion of influenza and the strong recommendation for anti-influenza medication in patients with influenza (including suspected influenza despite negative result). Patient is agreeable with this plan. Departure - Departure Disposition: 01 Home, Self Care Clinical Impression: Viral syndrome Condition: Good Instructions: ED Flu, ED Viral Syndrome Follow-Up: [facility] [Provider Group] Prescriptions: Oseltamivir [Tamiflu] 75 mg PO BID #9 capsule Discharge Date/Time: 11/28/19 04:31
[2019-11-28 04:10] VITALS: BP 116/80
[2019-11-28] MEDS ORDERED: OSELTAMIVIR 75 MG CAPSULE PO STA (04:19)
== END 2019-11-28 04:31 | disposition home or self-care (01) ==
LOC: ED 04:01
DX: O98.511 Other viral diseases complicating pregnancy, first trimester (principal); B34.9 Viral infection, unspecified; Z3A.01 Less than 8 weeks gestation of pregnancy
CPT/HCPCS: 87275; 87276; 99283; 99284; A9270

== ENCOUNTER 2020-01-08 19:34 | Emergency (ER) | payer OTHER ==
[2020-01-08 20:01] LABS: BASOPHILS % (AUTO) 0.4 %; EOSINOPHILS # (AUTO) 0.1 10^3/uL (0.0-0.7); EOSINOPHILS % (AUTO) 1.1 %; HGB - HEMOGLOBIN 12.5 g/dL (12.0-16.0); LYMPHOCYTES # (AUTO) 2.2 10^3/uL (1.5-3.5); LYMPHOCYTES % (AUTO) 27.6 %; MEAN CORPUSCULAR HEMOGLOBIN 28.9 pg (27.0-31.0); MEAN CORPUSCULAR HGB CONC 33.2 g/dL (32.0-36.0); MEAN PLATELET VOLUME 10.3 fL (7.9-10.8); MONOCYTES # (AUTO) 0.6 10^3/uL (0.0-1.0); NEUTROPHILS % (AUTO) 63.5 %; PLT - PLATELET COUNT 229 10^3/uL (130-450); RED BLOOD COUNT 4.32 10^6/uL (4.20-5.40); RED CELL DISTRIBUTION WIDTH 13.4 % (12.0-15.0); WHITE BLOOD COUNT 7.9 x10^3/uL (4.8-10.8)
--- NOTE | 2020-01-08 20:10 | ED Physician Documentation ---
History of Present Illness - Stated complaint Stated Complaint: BURNING/THROBBING LOWER BACK/SIDES - Chief complaint Chief Complaint: Back Pain - History obtained from History obtained from: Patient, Family - History of Present Illness Timing: Today, How many days ago (several days) Pain level max: 5 Pain level now: 4 - Additonal information Additional information: 24-year-old female 1 para 0 approximately 13 weeks EGA. She states she has had lower back pain for the past few days. Worse with movement and better with rest. No vaginal bleeding. No vaginal discharge. Has not been taking anything for the pain. States had a ultrasound 2 weeks ago that was normal. She sees Dr. Noe at the [facility] for her OB care. No numbness or tingling. No trauma. No urinary symptoms. 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 : None HEENT: None Psych: None Musculoskeletal: None Derm: None - Past Surgical History Past Surgical History: Yes General: Other HEENT: Tonsil/Adenoidectomy - Present Medications Home Medications: Ambulatory Orders Medication Instructions Recorded Confirmed Oseltamivir [Tamiflu] 75 mg PO BID #9 capsule 11/28/19 Pnv No.95/Ferrous Fum/Folic AC 1 tab PO DAILY 11/28/19 11/28/19 [ Vitamins Tablet] Cephalexin [Keflex] 500 mg PO Q6H #20 capsule 01/08/20 - Allergies Allergies/Adverse Reactions: Allergies Allergy/AdvReac Type Severity Reaction Status Date / Time No Known Drug Allergies Allergy Verified 01/08/20 19:36 - Social History Does the pt smoke?: No Smoking Status: Never smoker Does the pt drink ETOH?: Yes Does the pt have substance abuse?: No - Immunizations Immunizations are current?: Yes - POLST Patient has POLST: No PD ED PE NORMAL - Vitals Vital signs reviewed: Yes - General General: Alert and oriented X 3, No acute distress - HEENT HEENT: Moist mucous membranes - Neck Neck: Supple, no meningeal sign - Cardiac Cardiac: RRR - Respiratory Respiratory: No respiratory distress, Clear bilaterally - Abdomen Abdomen: Soft, Non tender, Non distended - Back Back: No CVA TTP, No spinal TTP - Derm Derm: Warm and dry - Extremities Extremities: No edema, No calf tenderness / cord, Other (Normal bilateral lower extremity patellar and ankle jerk reflexes. Normal great toe extension bilaterally. no saddle anesthesia) - Neuro Neuro: Alert and oriented X 3, No motor deficit, No sensory deficit Results - Vitals Vitals: Vital Signs - 24 hr 01/08/20 01/08/20 19:36 20:39 Temperature 36.5 C 36.7 C Heart Rate 99 75 Respiratory 14 18 Rate Blood Pressure 133/85 H 120/86 H O2 Saturation 98 99 Oxygen O2 Source Room air - Labs Labs: Laboratory Tests 01/08/20 01/08/20 01/08/20 19:50 19:56 19:56 WBC 7.9 RBC 4.32 Hgb 12.5 Hct 37.6 MCV 87.0 MCH 28.9 MCHC 33.2 RDW 13.4 Plt Count 229 MPV 10.3 Neut # (Auto) 5.0 Lymph # (Auto) 2.2 Tillman # (Auto) 0.6 Eos # (Auto) 0.1 Baso # (Auto) 0.0 Absolute Nucleated RBC 0.00 Nucleated RBC % 0.0 Sodium 136 Potassium 3.6 Chloride 104 Carbon Dioxide 23 Anion Gap 9.0 BUN 13 Creatinine 0.7 Estimated GFR (MDRD) 105 Glucose 88 Calcium 9.5 Total Bilirubin 0.3 AST 23 ALT 22 Alkaline Phosphatase 50 Total Protein 7.3 Albumin 3.9 Globulin 3.4 Albumin/Globulin Ratio 1.1 Lipase 30 Urine Color YELLOW Urine Clarity CLEAR Urine pH 6.0 Ur Specific [place] 1.025 Urine Protein NEGATIVE Urine Glucose (UA) NEGATIVE Urine Ketones NEGATIVE Urine Occult Blood TRACE-LYSE Urine Nitrite NEGATIVE Urine Bilirubin NEGATIVE Urine Urobilinogen 0.2 (NORMAL) Ur Leukocyte Esterase SMALL H Urine RBC 0-5 Urine WBC 11-25 H Ur Squamous Epith Cells MANY Squamous H Urine Crystals 0-2 Calcium Oxalate Urine Bacteria Rare Ur Microscopic Review INDICATED Urine Culture Comments NOT INDICATED PD MEDICAL DECISION MAKING - ED course Complexity details: reviewed results, re-evaluated patient, considered differential (No cauda equina, no spinal epidural abscess, no fracture, no aortic dissection or evidence of aneursym rupture), d/w patient ED course: Bedside ultrasound reveals a intrauterine biparietal diameter measures 13 weeks and 2 days. heart rate is 154 bpm. Good movement. Patient with a UTI. Will place on Keflex for this. She is well-appearing, nontoxic. No evidence of pyelonephritis. Patient counseled regarding signs and symptoms for which I believe and urgent re-evaluation would be necessary. Patient with good understanding of and agreement to plan and is comfortable going home at this time This document was made in part using voice recognition software. While efforts are made to proofread this document, sound alike and grammatical errors may occur. Departure - Departure Disposition: Home, Self Care Clinical Impression: UTI (urinary tract infection) Qualifiers: Urinary tract infection type: acute cystitis Hematuria presence: without hematuria Qualified Code(s): N30.00 - Acute cystitis without hematuria Qualifiers: Weeks of gestation: 13 weeks Qualified Code(s): Z3A.13 - 13 weeks gestation of Condition: Good Instructions: ED UTI Cystitis Female Follow-Up: Don Kaye ARNP [Primary Care Provider] - Within 1 week Prescriptions: Cephalexin [Keflex] 500 mg PO Q6H #20 capsule Comments: Take all antibiotics until gone. Return if you worsen. Follow-up with your doctor for further care. You can use Tylenol at home for pain. Discharge Date/Time: 01/08/20 20:54
[2020-01-08 20:13] LABS: ALBUMIN 3.9 g/dL (3.2-5.5); ALBUMIN/GLOBULIN RATIO 1.1 (1.0-2.2); BILIRUBIN,TOTAL 0.3 mg/dL (0.2-1.0); CALCIUM 9.5 mg/dL (8.5-10.3); CREATININE 0.7 mg/dL (0.4-1.0); TOTAL PROTEIN 7.3 g/dL (6.7-8.2)
[2020-01-08 20:13] LABS: BILIRUBIN,URINE NEGATIVE (NEGATIVE); GLUCOSE, URINE (UA) NEGATIVE (NEGATIVE); KETONES,URINE (UA) NEGATIVE (NEGATIVE); LEUKOCYTE ESTERASE, URINE SMALL (NEGATIVE); NITRITE,URINE NEGATIVE (NEGATIVE); OCCULT BLOOD,URINE TRACE-LYSE (NEGATIVE); PROTEIN,URINE NEGATIVE (NEGATIVE); UROBILINOGEN,URINE 0.2 (NORMAL) E.U./dL (NORMAL)
[2020-01-08 20:14] LABS: CLARITY,URINE CLEAR (CLEAR)
[2020-01-08 20:27] LABS: BACTERIA,URINE Rare /HPF (None Seen); CRYSTALS,URINE 0-2 Calcium Oxalate /LPF; RBC,URINE 0-5 /HPF (0-5); SQUAMOUS EPITHELIAL CELL,UR MANY Squamous (<= Few)
[2020-01-08] MEDS ORDERED: cephALEXin 250 MG CAPSULE PO STA (20:31)
[2020-01-08 20:40] VITALS: BP 120/86
== END 2020-01-08 20:54 | disposition home or self-care (01) ==
LOC: ED 19:34
DX: O23.11 Infections of bladder in pregnancy, first trimester (principal); Z3A.13 13 weeks gestation of pregnancy
CPT/HCPCS: 36415; 80053; 81001; 83690; 85025; 99283; 99284; A9270; 81003; 87086

== ENCOUNTER 2020-05-09 20:43 | Outpatient (CLI) | payer OTHER ==
[2020-05-09 21:27] VITALS: BP 122/77
--- NOTE | 2020-05-09 21:59 | PROVIDER PROGRESS NOTE ---
- HPI Chief Complaint: Other (25 yo at 31+0 wga here for labor check. Followed by [facility]. Uncomplicated . No significant PMH or prior surgeries. 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 Last IC more than a week ago. Having lower abdominal pain and back pain. No CTX/VB/LOF. Afebrile.) Current : Current EDU 07/11/20 Gestation 31 Weeks and 0 Days 1 Para 0 Vital Signs Temperature 98.4 F 05/09/20 21:05 Heart Rate 102 H 05/09/20 21:05 Respiratory Rate 20 05/09/20 21:05 Blood Pressure 136/81 H 05/09/20 21:05 O2 Saturation 99 05/09/20 21:05 Temperature 98.4 F 05/09/20 21:05 Heart Rate 102 H 05/09/20 21:05 Respiratory Rate 05/09/20 21:05 Blood Pressure 122/77 05/09/20 21:20 O2 Saturation 99 05/09/20 21:05 - Exam GEN: NAD RESP: nl effort CV; RRR ABD: gravid, S&NT/ND. Mild TTP in suprapubic area. BACK: No CVA tenderness EXT:WWP PSYCH: Bright and reactive affect NEURO: A&O - Procedures NST Procedure: EFM 145 mod cali 15x15 accels no decels s/p VAS (non-reactive prior to VAS) TOCO: quiet SSE: Cervical visually closed and long. No fluid or blood in vaginal vault SVE: closed/long/high/mid Procedure Details: Cat I/AGA tracing No ctx on toco Reassuring SVE FFN,, UA, GCCT, vagitinitis panel pending - Plan Plan: Patient had no change in SVE over observation period Cat I tracing DC's home with precautions
[2020-05-09 22:01] LABS: BILIRUBIN,URINE NEGATIVE (NEGATIVE); GLUCOSE, URINE (UA) NEGATIVE (NEGATIVE); KETONES,URINE (UA) NEGATIVE (NEGATIVE); LEUKOCYTE ESTERASE, URINE TRACE (NEGATIVE); NITRITE,URINE NEGATIVE (NEGATIVE); OCCULT BLOOD,URINE NEGATIVE (NEGATIVE); PROTEIN,URINE NEGATIVE (NEGATIVE); UROBILINOGEN,URINE 0.2 (NORMAL) E.U./dL (NORMAL)
[2020-05-09 22:22] LABS: BACTERIA,URINE Few /HPF (None Seen); CLARITY,URINE CLEAR (CLEAR); RBC,URINE None Seen /HPF (0-5); SQUAMOUS EPITHELIAL CELL,UR MANY Squamous (<= Few)
[2020-05-10 01:20] LABS: TRICHOMONAS VAGINALIS DNA NEGATIVE (NEGATIVE)
[2020-05-10 03:48] LABS: CANDIDA GROUP DNA UNRESOLVED (NEGATIVE); CANDIDA KRUSEI DNA UNRESOLVED (NEGATIVE); TRICHOMONAS VAGINALIS DNA UNRESOLVED (NEGATIVE)
== END 2020-05-09 23:05 | disposition home or self-care (01) ==
LOC: WFO 20:43 → FBP 20:47 → WFO 23:05
PROVIDERS: ATTEND Obstetrics & Gynecology
DX: O99.89 Other specified diseases and conditions complicating pregnancy, childbirth and the puerperium (principal); Z3A.31 31 weeks gestation of pregnancy; R10.2 Pelvic and perineal pain; M54.9 Dorsalgia, unspecified
CPT/HCPCS: 81001; 82731; 87491; 87591; 87661; 87801; 99214

== ENCOUNTER 2020-05-11 14:40 | Outpatient (CLI) | payer OTHER ==
[2020-05-11 15:36] LABS: BILIRUBIN,URINE NEGATIVE (NEGATIVE); GLUCOSE, URINE (UA) NEGATIVE (NEGATIVE); KETONES,URINE (UA) NEGATIVE (NEGATIVE); LEUKOCYTE ESTERASE, URINE MODERATE (NEGATIVE); NITRITE,URINE NEGATIVE (NEGATIVE); OCCULT BLOOD,URINE NEGATIVE (NEGATIVE); PROTEIN,URINE NEGATIVE (NEGATIVE); UROBILINOGEN,URINE 0.2 (NORMAL) E.U./dL (NORMAL)
[2020-05-11 15:45] LABS: BACTERIA,URINE Few /HPF (None Seen); CLARITY,URINE CLEAR (CLEAR); RBC,URINE None Seen /HPF (0-5); SQUAMOUS EPITHELIAL CELL,UR MANY Squamous (<= Few)
[2020-05-11 15:54] LABS: RUPTURE OF MEMBRANES PLUS NEGATIVE (NEGATIVE)
[2020-05-11 17:19] LABS: BASOPHILS % (AUTO) 0.3 %; EOSINOPHILS # (AUTO) 0.1 10^3/uL (0.0-0.7); EOSINOPHILS % (AUTO) 0.8 %; HGB - HEMOGLOBIN 11.4 g/dL (12.0-16.0); LYMPHOCYTES # (AUTO) 1.7 10^3/uL (1.5-3.5); LYMPHOCYTES % (AUTO) 16.1 %; MEAN CORPUSCULAR HEMOGLOBIN 27.6 pg (27.0-31.0); MEAN CORPUSCULAR HGB CONC 31.9 g/dL (32.0-36.0); MEAN CORPUSCULAR VOLUME 86.4 fL (81.0-99.0); MEAN PLATELET VOLUME 10.8 fL (7.9-10.8); MONOCYTES # (AUTO) 0.5 10^3/uL (0.0-1.0); MONOCYTES % (AUTO) 4.9 %; NEUTROPHILS # (AUTO) 7.9 10^3/uL (1.5-6.6); PLT - PLATELET COUNT 234 10^3/uL (130-450); RED BLOOD COUNT 4.13 10^6/uL (4.20-5.40); RED CELL DISTRIBUTION WIDTH 15.3 % (12.0-15.0); WHITE BLOOD COUNT 10.3 x10^3/uL (4.8-10.8)
--- NOTE | 2020-05-11 17:22 | PREOP HISTORY & PHYSICAL ---
DATE OF SERVICE: 05/11/2020 Physician: Gerardo Moseley MD IDENTIFICATION: The patient is a 25-year-old G2, P1 female whose EDC is 07/11, this is based on an LMP of 12/18/2019. CHIEF COMPLAINT: Fluid loss. HISTORY OF PRESENT ILLNESS: Patient states she developed fluid loss yesterday, starting about 10-11 o'clock in the morning. She noted it was clear. She was home, she was not doing any exercise or any excessive activity. She denies any other symptoms at this time. She was seen back on the for similar complaints, at which time she had a negative rupture of membrane but had a positive FFN. Patient's OB course has been significant in that there was a 6- day discrepancy from her LMP with her 9-week ultrasound. Her 20-week ultrasound showed a discrepancy in growth, also, which made the appeared to be growing at a 3rd percentile. However, when you take into account her 9-week ultrasound, this was only a 35% discrepancy. The remainder of her course has been unremarkable. PAST MEDICAL HISTORY: Patient denies any medical issues. PAST SURGICAL HISTORY: Tonsils, adenoidectomy, as well as mole removal. ALLERGIES: NONE KNOWN. CURRENT MEDICATIONS: vitamins. HABITS: Patient denies use of alcohol, tobacco, or street or addictive drugs or marijuana. SOCIAL HISTORY: Patient is active duty [employer] [place], to fellow active duty [place] person. 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 FAMILY HISTORY: Positive for type 2 diabetes in her grandmother. REVIEW OF SYSTEMS: Positive for glasses. PHYSICAL EXAMINATION GENERAL: Well-developed, well-nourished, white female in no acute distress at this time. VITAL SIGNS: Within normal limits. HEENT: Pupils are equal, round. Extraocular muscles are intact. Thyroid is not palpably enlarged. HEART: Regular rate and rhythm without murmurs. LUNGS: Lung rodriguez are clear without rales or wheezes. ABDOMEN: Gravid, 31 cm fundal height. The uterus is nontender. PELVIC: Exam shows cervix, which is closed. It is about 2.5 to 3 cm in length. Her FFN was negative today as well as her ROM plus. Her urine shows moderate leukocytes; however, there is greater than 25 WBCs per high power but many squamous epithelial cells. FFN is negative as well as ROM plus. We have also done a group B strep, which is pending at this time. Because she has not had a 50 gram Glucola done at this point, we have obtained a CBC, antibody screen, and performed her 50 gram Glucola, which is currently pending. IMPRESSION: A 25-year-old G1, P0 female who is currently 29 weeks and 2 days by a 9-week ultrasound. The 20-week ultrasound concurs with this. Her last menstrual period is 6 day different. At this point, she does not appear to be ruptured. She does not appear to be laboring. We have obtained labs looking for evidence of any bacterial vaginosis. We have also done a 50 gram Glucola, as well as antibody screen and a CBC. These are pending. Ultrasound will be performed to check cervical length. cc requested for Dr. Noe at [facility] cc: Hasmukh TD: 05/11/2020 16:55 MTDD
--- NOTE | 2020-05-11 18:36 | Ultrasound Report ---
PROCEDURE: OB Transvaginal INDICATIONS: cervical length, contractions, back ache TECHNIQUE: Limited transvaginal ultrasound was performed to check cervix. COMPARISON: Outside OB ultrasound not available. FINDINGS: The cervix is closed measuring 3.9 cm. IMPRESSION: Cervix is closed measuring 3.9 cm. Reviewed by: Oscar Lucas MD on 05/11/2020 6:35 PM PDT Approved by: Oscar Lucas MD on 05/11/2020 6:35 PM PDT Station ID: [id number]
[2020-05-11 20:01] LABS: CANDIDA KRUSEI DNA UNRESOLVED (NEGATIVE)
[2020-05-11 20:02] LABS: CANDIDA GROUP DNA UNRESOLVED (NEGATIVE); TRICHOMONAS VAGINALIS DNA UNRESOLVED (NEGATIVE)
[2020-05-11 20:49] LABS: TRICHOMONAS VAGINALIS DNA NEGATIVE (NEGATIVE)
== END 2020-05-11 18:30 | disposition home or self-care (01) ==
LOC: FBP 14:40 → WFO 14:40
PROVIDERS: ATTEND Obstetrics & Gynecology
DX: O99.89 Other specified diseases and conditions complicating pregnancy, childbirth and the puerperium (principal); N89.8 Other specified noninflammatory disorders of vagina; Z36.85 Encounter for antenatal screening for Streptococcus B; Z36.89 Encounter for other specified antenatal screening; Z3A.29 29 weeks gestation of pregnancy; Z83.3 Family history of diabetes mellitus
CPT/HCPCS: 76817; 81001; 82731; 82950; 84112; 85025; 86850; 87086; 87491; 87591; 87661; 87797; 87801; 99214

== ENCOUNTER 2020-06-19 11:10 | Outpatient (CLI) | payer OTHER ==
[2020-06-19 19:34] LABS: TRICHOMONAS VAGINALIS DNA NEGATIVE (NEGATIVE)
== END 2020-06-19 23:59 | disposition home or self-care (01) ==
LOC: LAB.R 11:10
PROVIDERS: ATTEND Advanced Practice Midwife
DX: Z34.03 Encounter for supervision of normal first pregnancy, third trimester (principal); Z36.85 Encounter for antenatal screening for Streptococcus B
CPT/HCPCS: 87491; 87591; 87661; 87797

== ENCOUNTER 2020-07-14 13:25 | Inpatient (IN) | payer OTHER ==
[2020-07-14] MEDS ORDERED: TRANEXAMIC ACID 1,000 MG in SODIUM CHLORIDE 0.9% 100ML 100 ML IV PRN (14:11)
[2020-07-14] MEDS ORDERED: LIDOCAINE-MPF 1% 30 ML VIAL ID PRN (14:11)
[2020-07-14] MEDS ORDERED: OXYTOCIN 10 UNIT/ML VIAL IM PRN (14:11)
[2020-07-14] MEDS ORDERED: OXYTOCIN/SODIUM CHLORIDE 500 ML IV PRN (14:11)
[2020-07-14] MEDS ORDERED: miSOPROStoL 200 MCG TABLET BC PRN (14:11)
[2020-07-14] MEDS ORDERED: CARBOPROST TROMETHAMINE 250 MCG/ML AMP IM PRN (14:11)
[2020-07-14] MEDS ORDERED: METHYLERGONOVINE 0.2 MG/ML VIAL IM PRN (14:11)
[2020-07-14] MEDS ORDERED: SODIUM CHLORIDE FLUSH 0.9% 10 ML SYRINGE IVP PRN (14:11)
[2020-07-14 14:44] LABS: BASOPHILS % (AUTO) 0.3 %; EOSINOPHILS # (AUTO) 0.1 10^3/uL (0.0-0.7); EOSINOPHILS % (AUTO) 0.7 %; HGB - HEMOGLOBIN 11.3 g/dL (12.0-16.0); LYMPHOCYTES # (AUTO) 1.7 10^3/uL (1.5-3.5); LYMPHOCYTES % (AUTO) 19.2 %; MEAN CORPUSCULAR HEMOGLOBIN 27.7 pg (27.0-31.0); MEAN CORPUSCULAR HGB CONC 32.5 g/dL (32.0-36.0); MEAN CORPUSCULAR VOLUME 85.3 fL (81.0-99.0); MEAN PLATELET VOLUME 10.6 fL (7.9-10.8); MONOCYTES # (AUTO) 0.6 10^3/uL (0.0-1.0); MONOCYTES % (AUTO) 7.1 %; NEUTROPHILS # (AUTO) 6.2 10^3/uL (1.5-6.6); PLT - PLATELET COUNT 248 10^3/uL (130-450); RED BLOOD COUNT 4.08 10^6/uL (4.20-5.40); RED CELL DISTRIBUTION WIDTH 16.8 % (12.0-15.0); WHITE BLOOD COUNT 8.6 x10^3/uL (4.8-10.8)
[2020-07-14] MEDS ORDERED: diphenhydrAMINE 25 MG CAPSULE PO PRN (14:49)
--- NOTE | 2020-07-14 14:54 | HISTORY & PHYSICAL EXAMINATION ---
Admit History - Visit Reason Visit Reason: Other (elective IOL- pre-induction cervical ripening) - : 1 Parity: 0 Premature: 0 Ectopic: 0 : 0 Smoking Status: Never smoker - Mother's Labs Mother's Blood Type: positive: B Mother's RH: positive: Positive GBS: positive: Group B Step Negative Rubella Status: positive: Immune - Other Maternal History Other Maternal History: 25yo at 40.3wks gestation who presents to Labor and Delivery for pre- induction cervical ripening Reports movement Denies ctx/VB/LOF care with [facility] after transfer of care from [facility] at 34.6wks- care has been adequate Complications *BMI elevated (38.41 at last office visit) Dating Criteria *9wks c/w LMp for JASON of 07/12/2020 OB Hx *G1: current Medications * vitamin-daily Allergies *NKDA *Pollen allergy Medical History *Obesity Surgical History *Tonsillectomy Family History *Non contributory Social History *Non contributory Labs, Immunizations, and Findings Initial U/S: at 9wks c/w LMp for JASON of 07/12/2020 B pos/Rubella immune VZV imm Gentic testing: normal sequential screen, CF-neg FAS: wnl Suspected S<D, US normal at MFM 7/14 (36%ile) and no further followup recommended 3cm posterior uterine fibroid Glucola: 3hr 75/173/140/94- wnl TDAP : 06/05/2020 GBS & GC/CT at 36.6 weeks - neg/neg HSV: denies self and partner Breast pump Rx : obtained at [facility] MOD: . [place]. baby GIRL: Flores pp contraception: condoms PAP: wnl 2017 SVE : closed/70%/-3/soft/posterior/intact Vertex by BSUS EFW by sera's- 6.5-7# FHTs- baseline 140, moderate variability, accels, no decels (period of minimal variability noted on admit, consistent with sleep cycle. Resolved spontaneously after SVE) Assessment *25yo at 40.3wks gestation who presents to Labor and Delivery for pre-induction cervical ripening *Rosales Score 4- requires cervical ripening * Heart Tones- Category I Plan *Admit to OBS(until active labor, SROM, AROM, epidural, or pitocin) *Cervical ripening with Misoprostol *Monitoring- Continuous *Comfort measures available- position changes, whirlpool tub, fentanyl, and epidural per maternal preference *Diet/Activity- per maternal preference *Anticipate Meds/Allgy - Home Medications Home Medications: Ambulatory Orders Medication Instructions Recorded Confirmed Oseltamivir [Tamiflu] 75 mg PO BID #9 capsule 11/28/19 Pnv No.95/Ferrous Fum/Folic AC 1 tab PO DAILY 11/28/19 11/28/19 [ Vitamins Tablet] Cephalexin [Keflex] 500 mg PO Q6H #20 capsule 01/08/20 - Allergies Allergies/Adverse Reactions: Allergies Allergy/AdvReac Type Severity Reaction Status Date / Time No Known Drug Allergies Allergy Verified 01/08/20 19:36 Review of Systems - Gastrointestinal Gastrointestinal: reports: Nausea - All Other Systems All Other Systems: reports: Reviewed and negative Physical - Abdominal Exam Vital Signs: Temp Pulse Resp BP Pulse Ox 36.5 C 116 H 18 116/67 07/14/20 11:47 07/14/20 11:47 07/14/20 11:47 07/14/20 11:47 Contraction Frequency (min/apart): none Uterine Resting Tone: positive: Soft - Monitoring Heart Rate Baseline: 140 Strip Review: positive: Category I - Presentation Presentation: positive: Vertex - Vaginal Exam Membranes: positive: Membranes intact Dilation (in cm): 3 Effacement (%): 70 Station: positive: -3 Cervical Position: positive: Posterior Plan for Labor - Plan For Labor I expect patient to be DC'd or transferred within 96 hours.: Yes
[2020-07-14] MEDS: miSOPROStoL 100 MCG TABLET BC SCH ×3 (15:19→23:32)
[2020-07-14] MEDS: SODIUM CHLORIDE FLUSH 0.9% 10 ML SYRINGE IVP SCH (22:41)
[2020-07-15] MEDS: fentaNYL 100 MCG/2 ML VIAL IVP PRN ×2 (03:00→13:13)
[2020-07-15] MEDS: SODIUM CHLORIDE FLUSH 0.9% 10 ML SYRINGE IVP SCH ×3 (03:00→23:03)
[2020-07-15] MEDS: miSOPROStoL 100 MCG TABLET BC SCH ×2 (05:10→10:05)
--- NOTE | 2020-07-15 07:34 | PROVIDER PROGRESS NOTE ---
Labor Progress Note - Uterine Monitoring Uterine Monitoring Mode: positive: External toco Contraction Frequency (min/apart): 1-4 Contraction Intensity: positive: Mild to moderate Uterine Resting Tone: positive: Soft - Monitoring Monitor Mode: positive: External ultrasound Heart Rate Baseline: 135 Heart Rate Variability: positive: Moderate (6-25 bmp) Accelerations: positive: Present, 15x15 Decelerations: positive: None Strip Review: positive: Category I - Labor Progress Note Labor Progress Note/Additional Text: S: Teresa is up from the bathroom. Reports contractions as mild to moderate, approx 4-5/10 on the pain scale. She reports great relief last night after a 0300 fentanyl dose. O: Miso, dose 4 at 0500 FHTs as above CTX as above Afebrile VSS A: 25yo at 40.5wks gestation here for IOL, day 2 4/5 doses Miso given Contractions not strong/regular FHTs Cat I P: Anticipate Continue with dose 5 of Miso SVE after, or sooner PRN Continuous monitoring Movement/diet/comfort measures to maternal preference
--- NOTE | 2020-07-15 13:04 | PROVIDER PROGRESS NOTE ---
Labor Progress Note - Uterine Monitoring Uterine Monitoring Mode: positive: External toco Contraction Frequency (min/apart): 1-4 Contraction Intensity: positive: Mild to moderate Uterine Resting Tone: positive: Soft - Monitoring Monitor Mode: positive: External ultrasound Heart Rate Baseline: 140 Heart Rate Variability: positive: Moderate (6-25 bmp) Accelerations: positive: Present, 15x15 Decelerations: positive: None Strip Review: positive: Category I - Vaginal Exam Dilation (in cm): 1.5 Effacement (%): 80 Station: -1 Cervical Position: Posterior - Labor Progress Note Labor Progress Note/Additional Text: S: Teresa is ambulatory in room. Feeling contractions and breathing through them. O: FHTs as above Ctx as above VSS Cook balloon placed (Uterine 60mL/Vaginal 20mL) A: 25yo with continued need for cervical ripening FHTs Cat I Uterine ctx- difficult to trace, mild, and not yet active labor P: Anticipate Continuous monitoring Cook balloon in for 12h or until spontaneously ejected May then start pitocin for achieving adequate contractions Diet/Activity/comfort measures to maternal preference
[2020-07-15] MEDS: LACTATED RINGERS 1,000 ML IV SCH (22:58)
[2020-07-15] MEDS ORDERED: OXYTOCIN/SODIUM CHLORIDE 500 ML IV SCH (23:00)
[2020-07-16] MEDS: fentaNYL 100 MCG/2 ML VIAL IVP PRN (01:50)
[2020-07-16] MEDS ORDERED: ROPIVACAINE 0.2% 200 MG/100 ML BAG EP ONE (04:46)
[2020-07-16] MEDS ORDERED: fentaNYL 100 MCG/2 ML VIAL ONE (04:46)
[2020-07-16] MEDS ORDERED: BUPIVACAINE 0.25% PF 10 ML VIAL ONE (04:46)
[2020-07-16] MEDS ORDERED: diphenhydrAMINE INJ 50 MG/ML VIAL IVP PRN (05:20)
[2020-07-16] MEDS ORDERED: LACTATED RINGERS 500 ML IV ONE (05:20)
[2020-07-16] MEDS ORDERED: ROPIVACAINE 0.2% 200 MG/100 ML BAG EP PRN (05:20)
[2020-07-16] MEDS ORDERED: NALOXONE 0.4 MG/ML VIAL IVP PRN (05:20)
[2020-07-16] MEDS ORDERED: ONDANSETRON 4 MG/2 ML VIAL IVP PRN (05:20)
[2020-07-16] MEDS ORDERED: NALBUPHINE 10 MG/ML AMP IVP PRN (05:20)
[2020-07-16] MEDS ORDERED: ePHEDrine 50 MG/ML VIAL IVP PRN (05:20)
[2020-07-16] MEDS ORDERED: METOCLOPRAMIDE 10 MG/2 ML VIAL IVP PRN (05:20)
--- NOTE | 2020-07-16 05:20 | ANESTHESIA ---
Pre-Anesthesia VS, & Labs - Diagnosis active labor - Procedure Labor epidural Vital Signs: Temp Pulse Resp BP Pulse Ox 36.6 C 75 16 108/56 L 100 07/15/20 03:13 07/15/20 03:13 07/15/20 03:13 07/15/20 03:13 07/15/20 03:13 Height 5 ft 5 in Weight (kg) 104.326 kg Body Mass Index 36.6 - NPO >8 hours - Is Patient ?: Yes - Lab Results Current Lab Results: Laboratory Tests 07/14/20 17:12: Blood Type Recheck B POSITIVE 07/14/20 14:34: Blood Type B POSITIVE, Antibody Screen NEGATIVE 07/14/20 14:34: WBC 8.6, RBC 4.08 L, Hgb 11.3 L, Hct 34.8 L, MCV 85.3, MCH 27.7, MCHC 32.5, RDW 16.8 H, Plt Count 248, MPV 10.6, Neut # (Auto) 6.2, Lymph # (Auto) 1.7, [place] # (Auto) 0.6, Eos # (Auto) 0.1, Baso # (Auto) 0.0, Absolute Nucleated RBC 0.00, Nucleated RBC % 0.0 Lab results reviewed: Yes Fish Bones: 07/14/20 14:34 Home Medications and Allergies Active Medications Carboprost Tromethamine (Hemabate) 250 mcg IM Q15M PRN PRN Reason: Step 4: Hemorrhage protocol Stop: 07/19/20 14:12 Diphenhydramine HCl (Benadryl) 25 mg PO QPM PRN PRN Reason: Insomnia Last Admin: 07/14/20 22:41 Dose: 25 mg Documented by: Fentanyl (Fentanyl) 50 mcg IVP Q1H PRN PRN Reason: PAIN Last Admin: 07/16/20 01:50 Dose: 50 mcg Documented by: Oxytocin/Sodium Chloride (Pitocin/Sodium Chloride) 500 mls @ 999 mls/hr IV PRN PRN; Protocol PRN Reason: POST- HEMORR PREVENTION Stop: 07/19/20 14:12 Tranexamic Acid 1,000 mg/ (Sodium Chloride) 110 mls @ 660 mls/hr IV .ONCE PRN PRN Reason: EBL >1200mL and within 3hr Stop: 07/19/20 14:12 Lactated Ringer's (Lr) 1,000 mls @ 100 mls/hr IV .Q10H CHAZ Last Admin: 07/15/20 22:58 Dose: 100 mls/hr Documented by: Oxytocin/Sodium Chloride (Pitocin/Sodium Chloride) 500 mls @ 1 mls/hr IV TITR CHAZ; Protocol Last Admin: 07/15/20 23:25 Dose: 1 milliunit/min, 1 mls/hr Documented by: Lidocaine HCl (Xylocaine-Mpf 1% Vial) 30 ml ID .ONCE PRN PRN Reason: PERINEAL REPAIR Stop: 07/19/20 14:12 Methylergonovine Maleate (Methergine Inj) 0.2 mg IM .ONCE PRN PRN Reason: Step 2: Hemorrhage protocol Stop: 07/19/20 14:12 Misoprostol (Cytotec) 800 mcg BC .ONCE PRN PRN Reason: Step 3: Hemorrhage protocol Stop: 07/19/20 14:12 Oxytocin (Pitocin) 10 unit IM .ONCE PRN PRN Reason: Step one: If no IV access Stop: 07/19/20 14:12 Sodium Chloride (Normal Saline Flush 0.9%) 10 ml IVP 0100,0900,1700 CHAZ Last Admin: 07/15/20 23:03 Dose: 10 ml Documented by: Sodium Chloride (Normal Saline Flush 0.9%) 10 ml IVP PRN PRN PRN Reason: NEEDED PER PROVIDER ORDERS Last Admin: 07/15/20 23:25 Dose: 10 ml Documented by: Pnv No.95/Ferrous Fum/Folic AC [ Vitamins Tablet] 1 tab PO DAILY 11/28/19 Allergies/Adverse Reactions: Allergies Allergy/AdvReac Type Severity Reaction Status Date / Time No Known Drug Allergies Allergy Verified 01/08/20 19:36 Anes History & Medical History - Anesthetic History Anesthesia Complications: reports: No previous complications Family history of Anesthesia Complications: Denies Family history of Malignant Hyperthermia: Denies - Medical History Cardiovascular: reports: None Pulmonary: reports: None Gastrointestinal: reports: None Urinary: reports: None Neuro: reports: None Musculoskeletal: reports: None Endocrine/Autoimmune: reports: None Blood Disorders: reports: None Skin: reports: None Smoking Status: Never smoker - Surgical History General: Other Eyes Ears Nose Throat (EENT): Tonsil/Adenoidectomy - Obstetrical History : 1 Parity: 0 Exam General: Alert, Oriented x3, Cooperative, No acute distress Plan Anesthesia Type: Epidural Consent for Procedure(s) Verified and Reviewed: Yes Code Status: Attempt Resuscitation ASA classification: 2-Mild systemic disease Is this case an emergency?: No
--- NOTE | 2020-07-16 05:26 | ANESTHESIA PROCEDURE NOTE ---
Diagnosis: active labor Procedure: Labor epidural Consent for Procedure(s) Verified and Reviewed: Yes Height and Weight: Height 5 ft 5 in Weight (kg) 104.326 kg Body Mass Index 36.6 Vital Signs: Temp Pulse Resp BP Pulse Ox 36.6 C 75 16 108/56 L 100 07/15/20 03:13 07/15/20 03:13 07/15/20 03:13 07/15/20 03:13 07/15/20 03:13 Allergies No Known Drug Allergies Allergy (Verified 01/08/20 19:36) Requesting Provider: Otoniel Location: [facility] ASA classification: 2-Mild systemic disease Is this case an emergency?: No Anes. Monitoring and Equipment: Non-invasive BP, Pulse oximetery, Sterile prep and drape Anes. Procedure Start Time: 04:43 Anes. Procedure Stop Time: 05:10 Procedure Notes: Consent obtained, sterile prep and drape, patient sitting, lido 1% to skin and underlying tissues, L4-5 interspace, MARK 6.5 cm, DPE performed with positive csf, catheter threaded to 13 cm, negative test dose, negative blood or csf, Fentanyl 100 mcg and Bupivicaine 0.25% 8 mL given and pump started per orders. Patient had pain relief before leaving the room and tolerated the procedure well.
[2020-07-16] MEDS: LACTATED RINGERS 1,000 ML IV SCH ×4 (06:02→15:58)
--- NOTE | 2020-07-16 06:22 | PROVIDER PROGRESS NOTE ---
Labor Progress Note - Uterine Monitoring Uterine Monitoring Mode: positive: External toco Contraction Frequency (min/apart): 2-4 Contraction Intensity: positive: Mild to moderate Uterine Resting Tone: positive: Soft - Monitoring Monitor Mode: positive: External ultrasound Heart Rate Baseline: 135 Heart Rate Variability: positive: Moderate (6-25 bmp) Accelerations: positive: Present, 15x15 Decelerations: positive: None - Vaginal Exam Dilation (in cm): 8 Effacement (%): 100 Station: -1 - Labor Progress Note Labor Progress Note/Additional Text: S: Teresa is resting in bed, sleeping intermittently with epidural adequate for pain management. O: FHTs as above Ctx as above SVE as above Cook balloon out at 2242 Pitocin at 6mU/min, started at 2325 VSS/afebrile A: 25yo in active labor FHTs Cat I Uterine contractions- difficult to trace, but adequate as evidenced by cervical change P: Anticipate Continue pitocin administration-titrate to protocol Continuous monitoring Epidural for pain management Ice chips only- per anesthesia provider
[2020-07-16] MEDS ORDERED: WITCH HAZEL/GLYCERIN 1 PAD TOP PRN (12:01)
[2020-07-16] MEDS ORDERED: HYDROCORTISONE 1% CREAM 28 GM TUBE PR PRN (12:01)
--- NOTE | 2020-07-16 12:17 | DELIVERY NOTE ---
Delivery Note - Labor Labor: positive: Induced by oxytocin (and Misoprostol) - Delivery Method Infant Delivery Method: positive: Spontaneous vaginal delivery - Cervical Ripening Method Cervical Ripening Method: positive: Balloon device, Misoprostil - Presentation Presentation: positive: Vertex, HAL - right occiput anterior - Nuchal Cord Nuchal Cord: positive: Present (x1; sommersaulted) - Anesthetic Anesthetic Type: - Amniotic Fluid Description Amniotic Fluid Description: positive: Clear - Episiotomy Type Episiotomy Type: positive: None - Laceration Laceration: positive: 1st degree, Periurethral (bilateral) - Suture Suture Type: positive: Vicryl Suture Size: positive: 3-0, 4-0 - Delivery Outcome Delivery Outcome: positive: Livebirth - [place]: positive: Placed in direct skin contact with mother, Stimulated, [place] used sex: positive: Female : 9 : 9 - Cord Cord: positive: 3 vessels - Placenta Placenta: positive: Intact, Spontaneous - Estimated Blood Loss Estimated Blood Loss (in cc): 300 - Post Delivery Events Post Delivery Events: positive: No post delivery events - Delivery Comments (Free Text/Narrative) Delivery Comments (Free Text/Narrative): Note: Labor: This 25 year old, , @40.2wks gestation presented on 07/14/2020 for IOL. Cervix was clsd/70%/-3 and vertex by BSUS. FHR pattern demonstrated 140 baseline in a Category I pattern. Normal labor course. Epidural placed upon maternal request. SROM occurred on 07/16/2020 @ 0330 and amount and color of fluid were noted to be scant and clear. She progressed to c/c/+2 at 0923 and began pushing at 0933. : Normal of a 3595gm female infant, Flores, on 07/16/2020 @ 1118. Nuchal present x1 and baby sommersaulted through. The was placed on maternal abdomen, stimulated, dried and placed skin to skin. Apgars 9 at one minute and 9 at five minutes. The umbilical cord was allowed to stop pulsating at which time it was doubly clamped by CNM and cut by FOB. Pitocin administered via IV for hemostasis. Fundal massage and gentle cord traction applied for active third stage management. Cord blood was obtained. Placenta delivered spontaneously and intact at 1128. Three vessel cord. EBL 300mL. Fourth Stage: Uterine fundus firm and without excessive bleeding. The perineum, vagina, and cervix were inspected and found to have sustained bilateral first degree periurethral lacerations. They were repaired with 3-0 vicryl and 4-0 vicryl under sterile conditions in standard fashion. Vaginal examination following repair was done. Tissues well approximated. initiated. Family bonding well. Both mother and baby are in stable condition.
[2020-07-16] MEDS: ACETAMINOPHEN 500 MG TABLET PO PRN ×2 (13:24→21:28)
[2020-07-16] MEDS: IBUPROFEN 600 MG TABLET PO PRN ×2 (13:25→19:39)
[2020-07-16] MEDS: SODIUM CHLORIDE FLUSH 0.9% 10 ML SYRINGE IVP SCH ×2 (15:57→15:59)
[2020-07-17] MEDS: IBUPROFEN 600 MG TABLET PO PRN ×2 (01:43→12:00)
[2020-07-17] MEDS: ACETAMINOPHEN 500 MG TABLET PO PRN (05:19)
[2020-07-17 11:56] VITALS: BP 114/58
--- NOTE | 2020-07-17 13:54 | Labor Flowsheet ---
Labor Flowsheet Datetime Report Generated by CPN: 07/17/2020 13:54 Datetime: 07/16/2020 16:16 VITAL SIGNS NBP Sys/Dorothy/Mean (mmHg): 116 : 59 : 72 Pulse: 91 Datetime: 07/16/2020 14:30 Temperature (C): 36.4 Datetime: 07/16/2020 13:45 SpO2 (%): 98 Datetime: 07/16/2020 13:10 Membranes Ruptured Date/Time: 07/16/2020 03:30 Membranes Rupture Method: Spontaneous Amniotic Fluid Color: Clear Amniotic Fluid Amount: Small Datetime: 07/16/2020 12:30 Stage of : Recovery Respirations: 18 PAIN Pain Scale: 1 Pain Assessment Comments: Datetime: 07/16/2020 12:16 Pain Presence: Constant Pain Type: soreness Pain Location: Other (Annotations: all over) Datetime: 07/16/2020 11:17 UTERINE ACTIVITY Monitor Mode: External Frequency (min): 1-1.5 Quality: Strong Duration (sec): 30-50 Pattern: Tachysystole: > 5 Contractions in 10 Minutes Resting Tone (Palpate): Relaxed Contraction Comments: pt pushing with ctx ASSESSMENT A Monitor Mode: Telemetry FHR Baseline Rate : 150 Variability: Moderate 6-25 bpm Accelerations: 15X15 Comments: interrupted strip, possible maternal HR vs varible Oxygen Method: Room Air Datetime: 07/16/2020 11:15 LaborFlag: Labor Datetime: 07/16/2020 11:00 Decelerations: None Category: Category I Datetime: 07/16/2020 10:40 Stage 2 Comments: squat bar with sheet Datetime: 07/16/2020 09:35 I/O Interventions: Noguera Discontinued Datetime: 07/16/2020 09:33 STAGE 2 Pushing: Coached on Pushing; Urge to Push Pushing Position: Pushing with Contractions; Pushing Lithotomy Pushing Progress: Descent with Pushing; Caput Noted; Presenting Part Visible Datetime: 07/16/2020 09:31 COMMUNICATION Communication: Provider at Bedside Provider Notified (Name): Myra Datetime: 07/16/2020 09:30 Monitor Interventions for FHR: Ultrasound Adjusted Datetime: 07/16/2020 09:23 VAGINAL EXAM Dilatation (cm): 10.0 Effacement (%): 100 Station: 2 Exam by: Kendra RN and Nissa Communication Comments: pt complete Datetime: 07/16/2020 09:01 Pitocin Checklist: At Least 1 Acceleration of 15 bpm x 15 Seconds in 30 Minutes or Adequate Variabi lity; No More than 1 Late Deceleration Occurred in Past 30 Minutes; No More than 2 Variable Decelerat ions > 60 Seconds in Duration and decreasing >60 bpm in 30 minutes; No More than 5 Uterine Contractio ns in 10 Minutes for any 20 Minute Interval; Uterus Palpates Soft between Contractions MEDICATIONS Pitocin (milliunits): Increased to @ 8 Datetime: 07/16/2020 08:30 Monitor Interventions for UA: Philo Adjusted Datetime: 07/16/2020 08:20 Patient Position/Activity: Left Tilt Hygiene: Berkley Care; Underpad Changed Patient Care Comments: peanut ball between ankles Datetime: 07/16/2020 07:39 Notification Reason: Status Update; Labor Status Datetime: 07/16/2020 07:38 Anesthesia Level Check: T10- Umbilicus Anesthesia Comments: pt receiving good pain control from epidural 0/10 pain Datetime: 07/16/2020 05:22 Vaginal Bleeding: None Cervix, Consistency: Soft Cervix, Position: Anterior Datetime: 07/16/2020 05:15 Pain Relief Measures: Epidural Given Pain Coping: Sleeping Datetime: 07/16/2020 05:00 Epidural Procedure Other: Single Dose Datetime: 07/16/2020 04:57 Epidural Procedure: Test Dose Datetime: 07/16/2020 04:48 PROCEDURE TIME OUT Procedure Verify: Correct Patient Identity; Correct Side and Site are Marked; Correct Patient Posit ion ANESTHESIA Anesthesia Plans: Epidural Epidural Positioning: Sitting Datetime: 07/16/2020 03:02 Comfort Measures: Breathing/Relaxation Datetime: 07/16/2020 01:52 Analgesics/Sedatives: Fentanyl (mcg) @ 50 Datetime: 07/15/2020 22:50 PATIENT CARE IV/Blood Work: IV Infusing per Order Datetime: 07/15/2020 19:19 MATERNAL ASSESSMENT Level of Consciousness: Alert Headache: Denies Breath Sounds, Left: Clear and Equal Breath Sounds, Right: Clear and Equal Nausea/Vomiting: Denies RUQ Epigastric Pain: Denies Datetime: 07/15/2020 18:00 FHR Baseline Changes: No Baseline Change Datetime: 07/15/2020 12:39 Cervical Ripening Agents: Noguera Balloon; Cytotec @ Medication Comments: 60/20 Datetime: 07/15/2020 06:30 Vibroacoustic Stim: Datetime: 07/15/2020 06:25 Membrane Status: Intact DTR's/Clonus: DTRs 2+; No Clonus Datetime: 07/15/2020 05:30 Resting Tone IUP (mmHg): Datetime: 07/15/2020 03:30 Actions for Decelerations: Side to Side Datetime: 07/15/2020 02:40 Pain Goal: 6 Datetime: 07/15/2020 02:14 Teaching Comments: instructed on jacuzzi tub Datetime: 07/15/2020 01:56 TEACHING Instructional Method: Verbal Labor/Induction: Labor Stages Medications: IV Narcotics Datetime: 07/14/2020 19:36 Temperature Route: Oral Plan of Care: Plan of Care Discussed; Induction Datetime: 07/14/2020 19:04 Connect Comments: Assumed care of pt, report recieved from FRANCESCA Gardner
--- NOTE | 2020-07-17 22:48 | PROVIDER PROGRESS NOTE ---
Subjective - Prog Note Date Prog Note Date: 07/17/20 Prog Note Time: 09:00 - Subjective Pt reports feeling: Improved, No change Subjective: Final Progress Note S: Teresa is ambulatory in her room, FOB is holding baby Flores. She reports her bleeding as light, and her pain as well controlled with ibuprofen. She says has been going well. O: Ambulatory without signs of discomfort Fundus firm Lochia light VSS A: 25yo s/p on 07/16/2020, day 1 well Perineum healing well P: Continue with routine care Evaluate for discharge home today Objective - Vital Signs/Intake & Output Intake & Output: Intake & Output 07/14/20 07/15/20 07/16/20 07/17/20 23:59 23:59 23:59 23:59 Intake Total 2206.667 Output Total 651 Balance 1555.667 - Lab Results Fish Bones: 07/14/20 14:34
--- NOTE | 2020-07-17 22:50 | Discharge Plan ---
Discharge Plan Problem Reviewed?: Yes Disposition: Home, Self Care Condition: Good Diet: Regular Activity Restrictions: No Restrictions Shower Restrictions: No Driving Restrictions: No Plan of Treatment: Return for visits at 1, 3, and 6wks No Smoking: If you smoke, Please STOP! Call for help. Follow-up with: Myra Frederick ARNP [Provider Admit Priv/Credential] -
--- NOTE | 2020-07-17 22:58 | DISCHARGE SUMMARY ---
Discharge Summary Condition at Discharge: Good Discharge Disposition: 01 Home, Self Care - HPI History of Present Illness: Admit Date 07/14/2020 Discharge Date 07/17/2020 Diagnosis on Admission: 1. A 25yo at 40.3 week intrauterine 2. Elective Induction of Labor 3. Obesity Diagnosis on Discharge 1. A 25yo s/p spontaneous vaginal delivery on 07/16/2020 2. Normal recovery Brief History: She is a patient at [facility] who presented on 07/14/2020 for pre-induction cervical ripening. Her cervix was closed, 70%effaced, and -3 st ation. Misoprostol and a cook balloon were used for cervical ripening. She was then augmented with pitocin and spontaneously delivered a viable female infant named Flores. Apgars were 9 and 9- and 1 and 5 minutes respectively. EBL 300 mL. The patient has bilateral first lacerations that were repaired with 3-0 vicryl and 4-0 vicryl in usual fashion under sterile conditions. She has been doing well in her course. She is ambulating and tolerating a regular diet. She is urinating without difficulty and her lochia is normal. Her pain is well controlled with oral medications. She will be discharged home today on day #1 without need for prescriptions. She intends to follow up with Midwifery at [facility] in 1, 3, and 6 weeks for routine visit. She has been given precautions to call if she has any worsening fevers, chills, abdominal pain, increased bleeding or foul smelling vaginal lochia. - ALLERGIES Allergies/Adverse Reactions: Allergies Allergy/AdvReac Type Severity Reaction Status Date / Time No Known Drug Allergies Allergy Verified 01/08/20 19:36 - MEDICATIONS Home Medications: Ambulatory Orders Medication Instructions Recorded Confirmed Oseltamivir [Tamiflu] 75 mg PO BID #9 capsule 11/28/19 Pnv No.95/Ferrous Fum/Folic AC 1 tab PO DAILY 11/28/19 11/28/19 [ Vitamins Tablet] Cephalexin [Keflex] 500 mg PO Q6H #20 capsule 01/08/20 - LABS Result Diagrams: 07/14/20 14:34
== END 2020-07-17 13:40 | disposition home or self-care (01) | DRG 807 ==
LOC: WFO 13:25 → FBP 13:32 → WFO 14:10 → FBP 14:11 → OBSVTOIN 07-15 23:43 → FBP 07-16 17:33
PROVIDERS: ADMIT Advanced Practice Midwife; ATTEND Advanced Practice Midwife
PROC: 10E0XZZ Delivery of Products of Conception, External Approach (ICD-10-PCS; principal; 2020-07-16)
PROC: 0HQ9XZZ Repair Perineum Skin, External Approach (ICD-10-PCS; 2020-07-16)
DX: O48.0 Post-term pregnancy (principal); Z37.0 Single live birth; O69.81X0 Labor and delivery complicated by cord around neck, without compression, not applicable or unspecified; O70.0 First degree perineal laceration during delivery; O99.214 Obesity complicating childbirth; E66.9 Obesity, unspecified; Z3A.40 40 weeks gestation of pregnancy
CPT/HCPCS: 51703; 85025; 86850; 86900; 86901; 96361; 96374; 96375; 96376; A9270; G0378; J7120

== ENCOUNTER 2020-10-06 15:47 | Emergency (ER) | payer OTHER ==
[2020-10-06 16:16] VITALS: BP 113/75
--- NOTE | 2020-10-06 16:52 | XRAY Report ---
PROCEDURE: Foot 3 View LT INDICATIONS: foot inj TECHNIQUE: 3 views of the foot were acquired. COMPARISON: Left ankle radiographs dated 04/04/2019 FINDINGS: Bones: No acute fractures or dislocations. No suspicious bony lesions. Soft tissues: Mild nonspecific soft tissue edema is seen at the dorsum of the foot. IMPRESSION: No acute osseous abnormality. If symptoms persist with conservative management, further evaluation wi th CT or MRI may be obtained. Reviewed by: Michelet Beckman MD on 10/06/2020 4:51 PM [facility] Approved by: Michelet Beckman MD on 10/06/2020 4:51 PM [facility] Station ID: [id number]
== END 2020-10-06 19:18 | disposition left against medical advice (07) ==
LOC: ED 15:47
DX: Z53.21 Procedure and treatment not carried out due to patient leaving prior to being seen by health care provider (principal); M79.672 Pain in left foot
CPT/HCPCS: 99283

== ENCOUNTER 2020-11-23 08:00 | Outpatient (CLI) | payer OTHER | END 2020-11-23 23:59 | disposition home or self-care (01) | LOC: LAB.R 08:00 | PROVIDERS: ATTEND Family Medicine | DX: J06.9 Acute upper respiratory infection, unspecified (principal); Z20.822 Contact with and (suspected) exposure to COVID-19 | CPT/HCPCS: 87275; 87276 ==

== ENCOUNTER 2020-11-23 10:41 | Outpatient (CLI) | payer OTHER ==
--- NOTE | 2020-11-23 12:23 | XRAY Report ---
PROCEDURE: Chest 2 View X-Ray INDICATIONS: COUGH TECHNIQUE: 2 view(s) of the chest. COMPARISON: None. FINDINGS: Surgical changes and devices: None. Lungs and pleura: No pleural effusions or pneumothorax. Lungs are clear. Mediastinum: Mediastinal contours are normal. Heart size is normal. Bones and chest wall: No suspicious bony abnormalities. Soft tissues appear unremarkable. IMPRESSION: No pneumonia found, source of cough is not identified. Reviewed by: Jayjay Josue MD on 11/23/2020 12:21 PM [facility] Approved by: Jayjay Josue MD on 11/23/2020 12:21 PM [facility] Station ID: [id number]
== END 2020-11-23 23:59 | disposition home or self-care (01) ==
LOC: DI.N 10:41
PROVIDERS: ATTEND Family Medicine
DX: R05 Cough (principal)

== ENCOUNTER 2021-03-08 16:28 | Emergency (ER) | payer OTHER ==
[2021-03-08 16:42] LABS: BILIRUBIN,URINE NEGATIVE (NEGATIVE); CLARITY,URINE CLOUDY (CLEAR); GLUCOSE, URINE (UA) NEGATIVE (NEGATIVE); KETONES,URINE (UA) NEGATIVE (NEGATIVE); LEUKOCYTE ESTERASE, URINE SMALL (NEGATIVE); NITRITE,URINE NEGATIVE (NEGATIVE); OCCULT BLOOD,URINE NEGATIVE (NEGATIVE); PROTEIN,URINE NEGATIVE (NEGATIVE); UROBILINOGEN,URINE 0.2 (NORMAL) E.U./dL (NORMAL)
[2021-03-08 16:44] LABS: HCG UR QUAL NEGATIVE
[2021-03-08 16:52] LABS: BASOPHILS # (AUTO) 0.1 10^3/uL (0.0-0.1); BASOPHILS % (AUTO) 0.7 %; EOSINOPHILS # (AUTO) 0.1 10^3/uL (0.0-0.7); EOSINOPHILS % (AUTO) 0.7 %; HCT - HEMATOCRIT 45.1 % (37.0-47.0); HGB - HEMOGLOBIN 14.5 g/dL (12.0-16.0); LYMPHOCYTES # (AUTO) 2.4 10^3/uL (1.5-3.5); LYMPHOCYTES % (AUTO) 35.2 %; MEAN CORPUSCULAR HGB CONC 32.2 g/dL (32.0-36.0); MEAN CORPUSCULAR VOLUME 87.1 fL (81.0-99.0); MEAN PLATELET VOLUME 10.6 fL (7.9-10.8); MONOCYTES # (AUTO) 0.5 10^3/uL (0.0-1.0); MONOCYTES % (AUTO) 7.2 %; NEUTROPHILS # (AUTO) 3.9 10^3/uL (1.5-6.6); NEUTROPHILS % (AUTO) 56.1 %; PLT - PLATELET COUNT 280 10^3/uL (130-450); RED BLOOD COUNT 5.18 10^6/uL (4.20-5.40); RED CELL DISTRIBUTION WIDTH 13.2 % (12.0-15.0); WHITE BLOOD COUNT 6.9 x10^3/uL (4.8-10.8)
[2021-03-08 17:02] LABS: ALBUMIN 4.9 g/dL (3.2-5.5); ALBUMIN/GLOBULIN RATIO 1.5 (1.0-2.2); BILIRUBIN,TOTAL 0.5 mg/dL (0.2-1.0); CALCIUM 9.8 mg/dL (8.5-10.3); CREATININE 0.8 mg/dL (0.4-1.0); TOTAL PROTEIN 8.2 g/dL (6.7-8.2)
[2021-03-08 17:04] LABS: BACTERIA,URINE Moderate /HPF (None Seen); RBC,URINE 0-5 /HPF (0-5); SQUAMOUS EPITHELIAL CELL,UR FEW Squamous (<= Few)
[2021-03-08] MEDS ORDERED: IOPAMIDOL-300 100 ML VIAL ONE (17:05)
[2021-03-08] MEDS ORDERED: KETOROLAC 30 MG/ML VIAL IVP STA (17:08)
[2021-03-08] MEDS ORDERED: ONDANSETRON 4 MG/2 ML VIAL IVP STA (17:08)
--- NOTE | 2021-03-08 17:21 | ED Physician Documentation ---
PD HPI ABD PAIN - Stated complaint Stated Complaint: VOMITING,ABD PX - Chief complaint Chief Complaint: Abd Pain - History obtained from History obtained from: Patient - History of Present Illness Timing - onset: How many days ago (1) Timing - duration: Days (1) Timing - details: Gradual onset Pain level max: 6 Pain level now: 5 Quality: Aching, Pain Location: RLQ Radiation: No: Chest, , Lower back, Left flank, Left shoulder, Right flank, Right shoulder, Upper back Improved by: Laying still Worsened by: Moving Associated symptoms: Nausea, Vomiting, Constipation. No: Fever, Hematemesis, Diarrhea, Melena, Hematochezia, Dysuria, Hematuria, Chest pain, Vaginal bleeding, Vaginal dc Similar symptoms before: Has not had sx before Recently seen: Not recently seen - Additional information Additional information: Patient is a 26-year-old female who presents to the emergency department the right lower quadrant abdominal pain for the past 24 hours. States nausea and vomiting as well. Has had constipation. No dysuria. No urinary frequency. No vaginal bleeding. LMP was 2 years ago, currently breast-feeding her daughter. No fevers. No chills. No abdominal surgeries. No recent travel. No recent antibiotics. 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 : None HEENT: None Psych: None Musculoskeletal: None Derm: None - Past Surgical History Past Surgical History: Yes General: Other HEENT: Tonsil/Adenoidectomy - Present Medications Home Medications: Ambulatory Orders Medication Instructions Recorded Confirmed Oseltamivir [Tamiflu] 75 mg PO BID #9 capsule 11/28/19 Pnv No.95/Ferrous Fum/Folic AC 1 tab PO DAILY 11/28/19 11/28/19 [ Vitamins Tablet] cephALEXin [Keflex] 500 mg PO Q6H #20 capsule 01/08/20 HYDROcod/ACETAM 5/325 [[place] 5/325] 1 - 2 ea PO Q6H PRN #14 tablet 03/08/21 Nitrofurantoin Monohyd/M-Cryst 100 mg PO BID #10 cap 03/08/21 [Macrobid 100 mg Capsule] Ondansetron Odt [Zofran] 4 mg TL Q6H PRN #10 tablet 03/08/21 - Allergies Allergies/Adverse Reactions: Allergies Allergy/AdvReac Type Severity Reaction Status Date / Time No Known Drug Allergies Allergy Verified 03/08/21 16:30 - Social History Does the pt smoke?: No Smoking Status: Never smoker Does the pt drink ETOH?: Yes Does the pt have substance abuse?: No - Immunizations Immunizations are current?: Yes - POLST Patient has POLST: No PD ED PE NORMAL - Vitals Vital signs reviewed: Yes - General General: Alert and oriented X 3, No acute distress, Well developed/nourished - HEENT HEENT: Moist mucous membranes - Neck Neck: Supple, no meningeal sign - Cardiac Cardiac: RRR - Respiratory Respiratory: No respiratory distress, Clear bilaterally - Abdomen Abdomen: Soft, Non distended, Other (TTP right lower quadrant. Near McBurney's point. No peritoneal signs. Otherwise benign abdominal exam) - Back Back: No CVA TTP, No spinal TTP - Derm Derm: Warm and dry - Extremities Extremities: No edema, No calf tenderness / cord - Neuro Neuro: Alert and oriented X 3 - Psych Psych: Normal mood, Normal affect Results - Vitals Vitals: Vital Signs - 24 hr 03/08/21 16:30 Temperature 36.5 C Heart Rate 84 Respiratory 16 Rate Blood Pressure 131/72 H O2 Saturation 98 Oxygen O2 Source Room air - Labs Labs: Laboratory Tests 03/08/21 03/08/21 03/08/21 16:30 16:37 16:37 WBC 6.9 RBC 5.18 Hgb 14.5 Hct 45.1 MCV 87.1 MCH 28.0 MCHC 32.2 RDW 13.2 Plt Count 280 MPV 10.6 Neut # (Auto) 3.9 Lymph # (Auto) 2.4 [place] # (Auto) 0.5 Eos # (Auto) 0.1 Baso # (Auto) 0.1 Absolute Nucleated RBC 0.00 Nucleated RBC % 0.0 Sodium 141 Potassium 4.0 Chloride 106 Carbon Dioxide 26 Anion Gap 9.0 BUN 19 Creatinine 0.8 Estimated GFR (MDRD) 88 L Glucose 81 Calcium 9.8 Total Bilirubin 0.5 AST 22 ALT 22 Alkaline Phosphatase 119 Total Protein 8.2 Albumin 4.9 Globulin 3.3 Albumin/Globulin Ratio 1.5 Lipase 29 Urine Color YELLOW Urine Clarity CLOUDY Urine pH 6.0 Ur Specific [place] 1.020 Urine Protein NEGATIVE Urine Glucose (UA) NEGATIVE Urine Ketones NEGATIVE Urine Occult Blood NEGATIVE Urine Nitrite NEGATIVE Urine Bilirubin NEGATIVE Urine Urobilinogen 0.2 (NORMAL) Ur Leukocyte Esterase SMALL H Urine RBC 0-5 Urine WBC 6-10 H Ur Squamous Epith Cells FEW Squamous Urine Bacteria Moderate H Ur Microscopic Review INDICATED Urine Culture Comments INDICATED Urine HCG, Qual NEGATIVE - Rads (name of study) CT abdomen pelvis Radiology: Prelim report reviewed, EMP read contemporaneously, See rad report PD MEDICAL DECISION MAKING - ED course Complexity details: reviewed results, re-evaluated patient, considered differential, d/w patient ED course: 26-year-old female with abdominal pain consistent with mesenteric adenitis. She also appears to have UTI and we will treat this with antibiotics. Patient is well-appearing, nontoxic. Afebrile. No vaginal bleeding or discharge. Pain well controlled. Patient counseled regarding signs and symptoms for which I believe and urgent re-evaluation would be necessary. Patient with good understanding of and agreement to plan and is comfortable going home at this time This document was made in part using voice recognition software. While efforts are made to proofread this document, sound alike and grammatical errors may occur. IMPRESSION: 1. Cluster of subcentimeter lymph nodes within the right lower quadrant with a normal appearing appendix. Overall appearance is suggestive of mesenteric adenitis. Departure - Departure Disposition: 01 Home, Self Care Clinical Impression: Mesenteric adenitis UTI (urinary tract infection) Qualifiers: Urinary tract infection type: acute cystitis Hematuria presence: without hematuria Qualified Code(s): N30.00 - Acute cystitis without hematuria Condition: Good Instructions: ED Adenitis Mesenteric, ED UTI Cystitis Female Follow-Up: GLORIA RODRIGUEZ ARNP [Primary Care Provider] - Within 1 week Prescriptions: Nitrofurantoin Monohyd/M-Cryst [Macrobid 100 mg Capsule] 100 mg PO BID #10 cap HYDROcod/ACETAM 5/325 [[place] 5/325] 1 - 2 ea PO Q6H PRN #14 tablet PRN Reason: Pain Ondansetron Odt [Zofran] 4 mg TL Q6H PRN #10 tablet PRN Reason: Nausea / Vomiting Comments: Take all antibiotics until gone. Follow-up with your doctor for further care. The mesenteric adenitis should resolve on its own. Do not drink alcohol or drive while on narcotic pain medicine. Note that many narcotic pain relievers also contain tylenol/acetaminophen. Please ensure that your total dose of acetaminophen from all sources does not exceed 3 grams (3000mg) per day. You may constipated on this medication, take a stool softener such as "Colace" twice a day while you are on it. Also recommend a avmi-kzv-nefyllr laxative such as senna or MiraLAX any day that you do not have a bowel movement. If you received narcotic pain medication in the emergency department, do not drive or operate machinery for the next [address] Scan
[2021-03-08] MEDS ORDERED: IOPAMIDOL-300 100 ML VIAL IVP ONE (17:58)
--- NOTE | 2021-03-08 18:33 | CT Report ---
PROCEDURE: Abdomen/Pelvis W INDICATIONS: RLQ abd pain, vomiting CONTRAST: IV CONTRAST: Isovue 300 ml: 100 PO CONTRAST: *NO PO CONTRAST TECHNIQUE: After the administration of IV contrast, 5 mm thick sections acquired from the diaphragms to the symp hysis. 5 mm thick coronal and sagittal reformats were acquired. For radiation dose reduction, the f ollowing was used: automated exposure control, adjustment of mA and/or kV according to patient size. COMPARISON: CT abdomen pelvis 01/22/2019 FINDINGS: Image quality: Excellent. ABDOMEN: Lung bases: Lung bases are clear. Heart size is normal. Solid organs: Liver is at the upper limits of normal in size with steatosis. The spleen is normal in size and enhancement. Gallbladder is unremarkable Biliary system is non dilated. Pancreas enhance s normally. No adrenal nodules. Kidneys demonstrate normal size and enhancement, without hydronephr osis. Peritoneum and bowel: Bowel loops demonstrate normal wall thickness and caliber. No free fluid or a ir. Appendix is normal. Nodes and vessels: No retroperitoneal or mesenteric adenopathy by size criteria. It is noted that th ere is a cluster of right lower quadrant lymph nodes ranging in size from 3 to 7 mm. Aorta and inferi or vena cava are normal in size. Miscellaneous: No ventral hernias. PELVIS: Genitourinary: Bladder wall thickness is normal. Miscellaneous: No inguinal hernias or adenopathy. Bones: No suspicious bony lesions. No vertebral body compression fractures. IMPRESSION: 1. Cluster of subcentimeter lymph nodes within the right lower quadrant with a normal appearing appen francisco javier. Overall appearance is suggestive of mesenteric adenitis. Reviewed by: Sabrina Hernandez MD on 03/08/2021 5:32 PM [facility] Approved by: Sabrina Hernandez MD on 03/08/2021 5:32 PM [facility] Station ID: [id number]
[2021-03-08] MEDS ORDERED: NITROFURANTOIN MACRO 100 MG CAPSULE PO STA (18:40)
[2021-03-08] MEDS ORDERED: HYDROcod/ACETAM 5/325 MG TABLET PO STA (18:40)
[2021-03-08 18:49] VITALS: BP 101/57
== END 2021-03-08 18:55 | disposition home or self-care (01) ==
LOC: ED 16:28
DX: I88.0 Nonspecific mesenteric lymphadenitis (principal); N30.00 Acute cystitis without hematuria; R11.2 Nausea with vomiting, unspecified
CPT/HCPCS: 36415; 74177; 80053; 81001; 81025; 83690; 85025; 87086; 96374; 96375; 99284; A9270; Q9967; 81003

== ENCOUNTER 2021-06-21 08:00 | Outpatient (CLI) | payer OTHER | END 2021-06-21 23:59 | disposition home or self-care (01) | LOC: LAB.N 08:00 | PROVIDERS: ATTEND Family Medicine | DX: K30 Functional dyspepsia (principal); Z20.822 Contact with and (suspected) exposure to COVID-19 ==

== ENCOUNTER 2021-06-29 17:20 | Emergency (ER) | payer OTHER ==
--- NOTE | 2021-06-29 17:23 | ED Physician Documentation ---
PD HPI SKIN - Stated complaint Stated Complaint: LT BREAST BLEEDING - History obtained from History obtained from: Patient - History of Present Illness Timing - onset: How many days ago (3) Timing - duration: Days (3) Timing - details: Gradual onset, Still present Location: Other (She is noticing blood-tinged coloring of the breast milk from the left breast only for the last 3 days. She is not aware of any injury to the area. There are no external sores or rash. She is feeling well generally. Mild pain of the left breast more than the right. No redness.) Quality / character: Swelling (She has typical engorgement of both breasts and feels slightly more fullness on the left.). No: Painful, Discolored Associated symptoms: No: Fever, Myalgias Contributing factors: Other (1 year post with still regular .) Similar symptoms before: Diagnosis (had mastitis post with pain and swelling, redness. Did not have blood with the breastmilk however. 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 : None HEENT: None Psych: None Musculoskeletal: None Derm: None - Past Surgical History Past Surgical History: Yes General: Other HEENT: Tonsil/Adenoidectomy - Present Medications Home Medications: Ambulatory Orders Medication Instructions Recorded Confirmed Ibuprofen [Motrin] 600 mg PO TID PRN #15 tab 06/29/21 PARoxetine HCl [Paxil] 20 mg PO DAILY 06/29/21 06/29/21 cephALEXin [Keflex] 500 mg PO TID 5 Days #15 cap 06/29/21 - Allergies Allergies/Adverse Reactions: Allergies Allergy/AdvReac Type Severity Reaction Status Date / Time No Known Drug Allergies Allergy Verified 06/29/21 17:32 - Social History Does the pt smoke?: No Smoking Status: Never smoker Does the pt drink ETOH?: Yes Does the pt have substance abuse?: No - Immunizations Immunizations are current?: Yes - POLST Patient has POLST: No PD ED PE NORMAL - Vitals Vital signs reviewed: Yes - General General: Alert and oriented X 3, No acute distress, Well developed/nourished - Derm Derm: Normal color, Warm and dry, Other (Both breasts have some mild engorgement. There is a increased area of firmness with mild tender at the 11 to 12 o'clock position on the left breast. No rash or sores are seen at the nipple. She does express a few drops of milk a day does have a pink tinge to it on the left. Nurse was present wit) Results - Vitals Vitals: Vital Signs - 24 hr 06/29/21 17:23 Temperature 36.3 C L Heart Rate 90 Respiratory 16 Rate Blood Pressure 124/73 O2 Saturation 99 Oxygen O2 Source Room air Departure - Departure Disposition: 01 Home, Self Care Clinical Impression: Nonpurulent mastitis Condition: Stable Record reviewed to determine appropriate education?: Yes Follow-Up: GLORIA RODRIGUEZ ARNP [Primary Care Provider] - Prescriptions: cephALEXin [Keflex] 500 mg PO TID 5 Days #15 cap Ibuprofen [Motrin] 600 mg PO TID PRN #15 tab PRN Reason: Pain Comments: I presume an early infection of the breast glands (mastitis) as the most likely cause for some blood in the breastmilk. We can treat this with cephalexin antibiotic as directed. Also add ibuprofen anti-inflammatory. Continue breast- feeding as normal. Recheck if not improved over the next few days. Return if worse
[2021-06-29 17:32] VITALS: BP 124/73
[2021-06-29] MEDS ORDERED: cephALEXin 250 MG CAPSULE PO STA (17:40)
[2021-06-29] MEDS ORDERED: IBUPROFEN 600 MG TABLET PO STA (17:40)
== END 2021-06-29 17:51 | disposition home or self-care (01) ==
LOC: ED 17:20
DX: N61.0 Mastitis without abscess (principal)
CPT/HCPCS: 99282; 99283; A9270

== ENCOUNTER 2021-06-30 08:02 | Emergency (ER) | payer OTHER ==
--- NOTE | 2021-06-30 09:38 | ED Physician Documentation ---
History of Present Illness - Stated complaint Stated Complaint: LT BREAST PX - Chief complaint Chief Complaint: General - History obtained from History obtained from: Patient - Additonal information Additional information: Patient returns the emergency department chief complaint of worsening left breast pain. Patient seen here yesterday and diagnosed with mastitis. She was started on Keflex at that time and has had 4 doses total. She is breast-feeding her 1-year-old daughter and states that symptoms have been going on for the last couple of days. She denies any fever or chills. She has noticed increasing redness spreading away from her areola. She noticed a "lump" but seems like this is gotten better now. No discharge from the nipple. There has been some slight blood tingeing, the patient states her daughter has not been wanting to latch because of the swelling and that has been difficult to pump. The patient states she has tried been trying a hand pump to try to decompress the breast. No other complaints at this time. Patient has not had any deformity or mass of the breast prior to this. She was seen just before this in walk-in clinic and sent here for ultrasound. No other complaints at this time. Review of Systems Ten Systems: 10 systems reviewed and negative Constitutional: reports: Reviewed and negative Eyes: reports: Reviewed and negative Ears: reports: Reviewed and negative Nose: reports: Reviewed and negative Throat: reports: Reviewed and negative Cardiac: reports: Reviewed and negative Respiratory: reports: Reviewed and negative GI: reports: Reviewed and negative : reports: Reviewed and negative Skin: reports: Other (Redness swelling and pain left breast) Musculoskeletal: reports: Reviewed and negative Neurologic: reports: Reviewed and negative Psychiatric: reports: Reviewed and negative Endocrine: reports: Reviewed and negative Immunocompromised: reports: Reviewed and negative PD PAST MEDICAL HISTORY - Past Medical History Past Medical History: Yes Cardiovascular: None Respiratory: None Neuro: None Endocrine/Autoimmune: None GI: None 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 : None HEENT: None Psych: None Musculoskeletal: None Derm: None - Past Surgical History Past Surgical History: Yes General: Other HEENT: Tonsil/Adenoidectomy - Present Medications Home Medications: Ambulatory Orders Medication Instructions Recorded Confirmed Ibuprofen [Motrin] 600 mg PO TID PRN #15 tab 06/29/21 06/30/21 PARoxetine HCl [Paxil] 20 mg PO DAILY 06/29/21 06/30/21 cephALEXin [Keflex] 500 mg PO TID 5 Days #15 cap 06/29/21 06/30/21 HYDROcod/ACETAM 5/325 [[place] 5/325] 1 - 2 tablet PO Q6H PRN #14 tablet 06/30/21 - Allergies Allergies/Adverse Reactions: Allergies Allergy/AdvReac Type Severity Reaction Status Date / Time No Known Drug Allergies Allergy Verified 06/30/21 08:07 - Social History Does the pt smoke?: No Smoking Status: Never smoker Does the pt drink ETOH?: Yes Does the pt have substance abuse?: No - Immunizations Immunizations are current?: Yes - POLST Patient has POLST: No PD ED PE NORMAL - Vitals Vital signs reviewed: Yes - General General: Alert and oriented X 3, No acute distress, Well developed/nourished - HEENT HEENT: Atraumatic, PERRL, EOMI, Moist mucous membranes - Neck Neck: Supple, no meningeal sign - Respiratory Respiratory: No respiratory distress - Derm Derm: Warm and dry, Other (Moderate erythema without induration or fluctuance of left breast, involving the 7-9 o'clock positions and the 3-4 o'clock positions, Radiating out from the areola. No peau d'orange. No mass. No nipple discharge. No distortion.) - Extremities Extremities: No deformity - Neuro Neuro: Alert and oriented X 3 - Psych Psych: Normal mood, Normal affect Results - Vitals Vitals: Oxygen O2 Source Room air PD MEDICAL DECISION MAKING - ED course Complexity details: reviewed results, re-evaluated patient, considered differential, d/w patient ED course: US was performed and did not show abscess. I attempted to review the case with Dr. Marlow, who was already aware of the pt, but she had finished call, and was not available. The pt is already established at their clinic, and I have instructed her to follow up there if not better in a week. For now, she should continue the current abx, as they are appropriate. We have discussed return for worsening sx. Departure - Departure Disposition: 01 Home, Self Care Clinical Impression: Mastitis Condition: Stable Instructions: ED Breast Infec Follow-Up: Giselle Marlow MD [Provider Admit Priv/Credential] - Prescriptions: HYDROcod/ACETAM 5/325 [[place] 5/325] 1 - 2 tablet PO Q6H PRN #14 tablet PRN Reason: Pain Comments: There is no evidence of an abscess on ultrasound at this time. Most likely, you have just not had enough time on antibiotics to begin to notice a significant difference in your foot infection. We will have you stay on the Keflex for now. Please follow-up with Dr. Marlow in clinic in the next couple of days to have this rechecked. You should call their office first thing on arriving home to set up a follow-up appointment. I have after the next several days, you do not notice any improvement, or certainly if things are worsening, you should have your breast rechecked. Discharge Date/Time: 06/30/21 10:31
[2021-06-30 10:31] VITALS: BP 113/77
--- NOTE | 2021-07-01 09:37 | Ultrasound Report ---
LIMITED ULTRASOUND OF LEFT BREAST: 06/30/2021 CLINICAL: Diffuse left breast pain. LUIQ R/A. No prior exams were available for comparison. Real-time ultrasound of the left breast 9-12 o'clock, and retroareolar regions was performed. Sargent scale images of the real-time examination were reviewed. There is mild subcutaneous edema and an area of skin thickening in the area of pain and erythema in t he left breast upper inner quadrant. No focal fluid collection is seen to suggest abscess formation. No suspicious mass is seen. IMPRESSION: BENIGN Left breast edema and skin thickening is suspicious for mastitis, without a focal abscess identified. Recommend clinical treatment and follow-up. Repeat ultrasound may be performed if symptoms do not re solve completely. There is no sonographic evidence of malignancy. This exam was interpreted at Station ID: [id number]. Electronically Signed By: Michelet rock/daylin:06/30/2021 09:51:54 Ultrasound BI-RADS: 2 Benign BI-RADS CATEGORY: (2) - 2 Unspecified - other recall n/a LATERALITY: (B)
== END 2021-06-30 10:31 | disposition home or self-care (01) ==
LOC: ED 08:02
DX: N61.0 Mastitis without abscess (principal)
CPT/HCPCS: 99283; 99284